=== PATIENT | male | born 1955 | race Caucasian/White ===

== ENCOUNTER 2016-12-13 18:04 | Inpatient (IN) | payer OTHER ==
[~2016-12-13] VITALS: Ht 188 cm; Wt 81.0 kg
[2016-12-13] MEDS ORDERED: SODIUM CHLORIDE 0.9% 1L BAG IV* STA (18:32)
[2016-12-13 19:00] LABS: ABNORMAL IP MESSAGE 1; BASOPHILS % 0.3 % (0.0-2.0); EOSINOPHILS % 0.3 % (0.0-7.0); HEMATOCRIT 41.6 % (42.0-52.0); HEMOGLOBIN 13.6 g/dl (14.0-18.0); LYMPHOCYTES # 0.4 10^3/ul (0.8-2.9); LYMPHOCYTES % 10.8 % (15.0-51.0); MEAN CORPUSCULAR HEMOGLOBIN 31.7 pg (29.0-33.0); MEAN CORPUSCULAR HGB CONC 32.7 g/dl (32.0-37.0); MEAN PLATELET VOLUME 12.4 fl (7.4-10.4); MONOCYTE # 0.3 10^3/ul (0.3-0.9); MONOCYTES % 10.5 % (0.0-11.0); NEUTROPHIL # 2.5 10^3/ul (1.6-7.5); NEUTROPHILS % 77.5 % (39.0-77.0); PLATELET COUNT 99 10^3/UL (140-415); POSITIVE DIFF @See below; RED BLOOD COUNT 4.29 10^6/ul (4.70-6.10); RED CELL DISTRIBUTION WIDTH 13.1 % (11.5-14.5); WHITE BLOOD COUNT 3.3 10^3/ul (4.8-10.8)
[2016-12-13 19:20] LABS: INR 1.13; PROTIME 14.5 Sec (12.2-14.2); PT RATIO 1.1
--- NOTE | 2016-12-13 19:20 | RADRPT ---
PROCEDURE: Chest x-ray CLINICAL INDICATION: Shortness of breath TECHNIQUE: Chest single view COMPARISON: None FINDINGS: Heart is normal in size. 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 No confluent pneumonia or obvious CHF is identified. Costophrenic angles sharp. Bony thorax is unremarkable. There is an old healed left clavicle fracture. IMPRESSION: 1. Increased bilateral coarse interstitial markings likely reflecting chronic change RPTAT: HH .Eulogio Jarvis MD, MD Date Time Electronically viewed and signed by .Eulogio Jarvis MD, on 12/13/2016 19:20 .W/
[2016-12-13 19:21] LABS: PARTIAL THROMBOPLASTIN TIME 26.2 Sec (25.0-35.0)
[2016-12-13] MEDS ORDERED: APIX5TAB PO (19:21)
[2016-12-13] MEDS ORDERED: TIOT18CA INHALATION (19:21)
[2016-12-13 19:22] LABS: ALBUMIN 3.5 g/dl (3.3-4.9); ALBUMIN/GLOBULIN RATIO 1.12; BILIRUBIN,INDIRECT 0.3 mg/dl (0-1.1); BILIRUBIN,TOTAL 0.3 mg/dl (0.2-1.3); CALCIUM 8.8 mg/dl (8.4-10.2); CREATININE 0.93 mg/dl (0.61-1.24); POTASSIUM 3.9 mmol/L (3.5-5.1); TOTAL PROTEIN 6.6 g/dl (6.1-8.1)
[2016-12-13] MEDS ORDERED: LEVO50TA74 PO (19:22)
[2016-12-13 19:23] VITALS: TEMP 100.3
[2016-12-13] MEDS ORDERED: QUET25TA33 PO (19:23)
[2016-12-13] MEDS ORDERED: QUET100T32 PO (19:23)
[2016-12-13] MEDS ORDERED: QUET200T27 PO (19:23)
[2016-12-13] MEDS ORDERED: ATOR10TA65 PO (19:24)
[2016-12-13] MEDS ORDERED: LORA1TAB PO (19:24)
[2016-12-13] MEDS ORDERED: FAMO40TA52 PO (19:25)
[2016-12-13] MEDS ORDERED: TRAM-40 PO (19:25)
[2016-12-13] MEDS ORDERED: UDCOL PO (19:26)
[2016-12-13] MEDS ORDERED: ALBU18HF INHALATION (19:28)
[2016-12-13 19:58] LABS: TROPONIN-I 0.19 ng/ml (0.00-0.12)
[2016-12-13] MEDS ORDERED: VLP250480 PO (20:10)
[2016-12-13] MEDS ORDERED: CEFEPIME 1GM/50 ML (PMX) 50 ML IVPB ONE (20:30)
[2016-12-13] MEDS ORDERED: VANCOMYCIN 1.5 GM in SOD CHLORIDE 0.9% 250 ML IVPB ONE (20:30)
[2016-12-13] MEDS ORDERED: FENTAnyl 50 MCG/ML VIAL IV ONE (21:30)
[2016-12-13 21:35] LABS: ADD UMIC NO; UR ASCORBIC ACID NEGATIVE (NEGATIVE); UR BILIRUBIN (Dip) NEGATIVE (NEGATIVE); UR BLOOD (Dip) NEGATIVE (NEGATIVE); UR CLARITY SLIGHTLY CLOUDY (CLEAR); UR COLOR YELLOW (YELLOW); UR GLUCOSE (Dip) NEGATIVE (NEGATIVE); UR KETONES (Dip) TRACE mg/dL (NEGATIVE); UR LEUKOCYTE ESTERASE (Dip) NEGATIVE Leu/ul (NEGATIVE); UR MUCUS FEW /HPF (NONE SEEN); UR NITRITE (Dip) NEGATIVE (NEGATIVE); UR RBC 1 /HPF (0-5); UR SPECIFIC GRAVITY (Dip) 1.015 (1.003-1.030); UR TOTAL PROTEIN (Dip) NEGATIVE (NEGATIVE); UR UROBILINOGEN (Dip) NEGATIVE (NEGATIVE)
[2016-12-13] MEDS ORDERED: HALOPERIDOL 5 MG INJ ONE (22:07)
--- NOTE | 2016-12-13 22:07 | ERA ---
ER Documentation Chief Complaint Date/Time DATE: 12/13/16 TIME: 22:07 Chief Complaint BROUGHT IN VIA EMS FROM SNF DUE TO FEVER HPI This is a 61-year-old male who is presenting with fever for 4-5 days. He lives in a nursing facility. He has a history of dementia, agitation, COPD. He is also on Eliquis, but it is unclear at this time as to why. According to his nursing facility he is not typically fully oriented. He is presently alert and oriented 2 to person and time. He is not oriented to place or situation. The patient does endorse pain all over at times, but he will answer yes and no cyst similar questioning. According to the nursing facility and paramedics, the patient was febrile above 102 Fahrenheit. He was tachycardic and transiently hypotensive as well. The patient's history is limited secondary to dementia and he is unable to provide much detail of his presentation. ROS Limited secondary to patient presentation. Medications Home Meds Reported Medications Valproic Acid* (Valproic Acid* Liq) 250 Mg/5 Ml Syrup, 25 ML PO BID, ML 12/13/16 Albuterol Sulfate* (Ventolin HFA*) 18 Gm Hfa.aer.ad, 2 PUFF INHALATION Q4H, #1 INHALER 12/13/16 Docusate Sodium* (Colace* Liq) 50 Mg/5 Ml Liquid, 25 MG PO BID, EA 12/13/16 Famotidine* (Famotidine*) 40 Mg Tablet, 40 MG PO HS, #30 TAB 12/13/16 Tramadol Hcl* (Ultram*) 50 Mg Tablet, 50 MG PO Q6H Y for PAIN, TAB 12/13/16 Atorvastatin Calcium (Atorvastatin Calcium) 10 Mg Tablet, 10 MG PO QHS, #30 TAB 12/13/16 Lorazepam* (Lorazepam*) 1 Mg Tablet, 1 MG PO BID Y for ANXIETY, #30 TAB 12/13/16 Quetiapine Fumarate* (Quetiapine Fumarate*) 200 Mg Tablet, 200 MG PO DAILY, TAB 12/13/16 Quetiapine Fumarate* (Quetiapine Fumarate*) 100 Mg Tablet, 100 MG PO HS, TAB 12/13/16 Quetiapine Fumarate* (Quetiapine Fumarate*) 25 Mg Tablet, 25 MG PO TID Y for PRN , TAB 12/13/16 Levothyroxine Sodium* (Levothyroxine Sodium*) 50 Mcg Tablet, 50 MCG PO BEFORE BREAKFAST, #30 TAB 12/13/16 Apixaban* (Eliquis*) 5 Mg Tablet, 5 MG PO BID, TAB 12/13/16 Tiotropium [place]* (Spiriva*) 18 Mcg Cap.w.dev, 1 CAP INHALATION DAILY, #30 CAP 12/13/16 Allergies Allergies: Coded Allergies: No Known Allergy (Unverified , 12/13/16) PMhx/Soc History of Surgery: Yes (both knees) Anesthesia Reaction: No Hx Neurological Disorder: No Hx Respiratory Disorders: No Hx Cardiac Disorders: No Hx Psychiatric Problems: No Hx Miscellaneous Medical Probl: No Hx Alcohol Use: No Hx Substance Use: No Hx Tobacco Use: Yes Smoking Status: Former smoker Physical Exam Vitals Vital Signs Date Time Temp Pulse Resp B/P Pulse Ox O2 Delivery O2 Flow Rate FiO2 12/13/16 21:54 117 23 99/63 99 Nasal Cannula 2.5 12/13/16 19:23 Nasal Cannula 2 12/13/16 19:23 100.3 114 39 113/74 93 Nasal Cannula 2.5 12/13/16 18:38 102.5 133 24 80/ 98 Physical Exam Const: Agitated Head: Atraumatic Eyes: Normal Conjunctiva ENT: Normal External Ears, dry mucous membranes. Neck: Full range of motion..~ No meningismus. Resp: Decreased breath sounds to the right Cardio: Tachycardia, regular rhythm, no murmurs Abd: Soft, non distended, generalized tenderness to palpation. Normal bowel sounds Skin: No petechiae or rashes Back: No midline or flank tenderness Ext: No cyanosis, or edema Neur: Awake and alert, only oriented 2 to person and year Psych: Agitated, difficult to redirect, demanding HBO, reportedly his baseline from the nursing facility Result Diagram: 12/13/16182912/13/16 183 Results 24 hrs Laboratory Tests Test 12/13/16 18:30 12/13/16 21:00 White Blood Count 3.310^3/ul Red Blood Count 4.2910^6/ul Hemoglobin 13.6g/dl Hematocrit 41.6% Mean Corpuscular Volume 97.0fl Mean Corpuscular Hemoglobin 31.7pg Mean Corpuscular Hemoglobin Concent 32.7g/dl Red Cell Distribution Width 13.1% Platelet Count 9910^3/UL Mean Platelet Volume 12.4fl Neutrophils % 77.5% Lymphocytes % 10.8% Monocytes % 10.5% Eosinophils % 0.3% Basophils % 0.3% Nucleated Red Blood Cells % 0.0/100WBC Neutrophils # 2.510^3/ul Lymphocytes # 0.410^3/ul Monocytes # 0.310^3/ul Eosinophils # 0.010^3/ul Basophils # 0.010^3/ul Nucleated Red Blood Cells # 0.010^3/ul Prothrombin Time 14.5Sec Prothrombin Time Ratio 1.1 INR International Normalized Ratio 1.13 Activated Partial Thromboplast Time 26.2Sec Sodium Level 144mmol/L Potassium Level 3.9mmol/L Chloride Level 104mmol/L Carbon Dioxide Level 23mmol/L Anion Gap 21 Blood Urea Nitrogen 24mg/dl Creatinine 0.93mg/dl Glucose Level 138mg/dl Lactic Acid Level 4.3mmol/L 3.5mmol/L Calcium Level 8.8mg/dl Total Bilirubin 0.3mg/dl Direct Bilirubin 0.00mg/dl Indirect Bilirubin 0.3mg/dl Aspartate Amino Transf (AST/SGOT) 19IU/L Alanine Aminotransferase (ALT/SGPT) 17IU/L Alkaline Phosphatase 53IU/L Troponin I 0.190ng/ml Total Protein 6.6g/dl Albumin 3.5g/dl Globulin 3.10g/dl Albumin/Globulin Ratio 1.12 Urine Color YELLOW Urine Clarity SLIGHTLY CLOUDY Urine pH 5.0 Urine Specific [place] 1.015 Urine Ketones TRACEmg/dL Urine Nitrite NEGATIVEmg/dL Urine Bilirubin NEGATIVEmg/dL Urine Urobilinogen NEGATIVEmg/dL Urine Leukocyte Esterase NEGATIVELeu/ul Urine Microscopic RBC 1/HPF Urine Microscopic WBC 1/HPF Urine Mucus FEW/HPF Urine Hemoglobin NEGATIVEmg/dL Urine Glucose NEGATIVEmg/dL Urine Total Protein NEGATIVEmg/dl Current Medications Medications (Trade) Dose Ordered Sig/Taras Route PRN Reason Start Time Stop Time Status Last Admin Dose Admin Sodium Chloride 2170 ml 2,170 ml BOLUS OVER 2 HOURS STAT IV* 12/13/16 18:32 12/13/16 18:36 DC 12/13/16 18:54 Vancomycin HCl 1.5 gm/Sodium Chloride 250 ml @ 83.333 mls/ hr ONCE ONCE IVPB 12/13/16 20:30 12/13/16 23:29 12/13/16 21:22 Cefepime HCl (Maxipime 1gm/50 ml (Pmx)) 50 ml @ 100 mls/hr ONCE ONCE IVPB 12/13/16 20:30 12/13/16 20:59 DC 12/13/16 20:56 Fentanyl (Sublimaze) 50 mcg ONCE ONCE IV 12/13/16 21:30 12/13/16 21:31 DC 12/13/16 21:31 Haloperidol (Haldol) 5 mg ONCE ONCE IV 12/13/16 22:30 12/13/16 22:31 12/13/16 22:10 Haloperidol (Haldol) 5 mg STK-MED ONCE .ROUTE 12/13/16 22:07 12/13/16 22:08 DC Procedures/MDM The patient is presenting with concerning signs of sepsis. The patient is tachypneic and tachycardic with an elevated fever. An infectious workup will be performed. The patient has a history of dementia and while he is alert, he is not completely oriented. This is reportedly his baseline. He does not have any focal deficits, and I do not suspect a neurologic pathology. The patient does not have signs of meningitis at this time. The patient denies any chest pain and trouble breathing. He also denied abdominal pain, but he was tender to palpation. The patient's blood work was obtained and reviewed. The patient's chest x-ray demonstrated increased fullness on the right side, that could be sales representative consultant of a possible pneumonia. The official radiology read did not indicate signs of an infectious process. A CT chest will be obtained to further elucidate a possible infectious etiology. The patient was significantly agitated and would not cooperate for definitive diagnostic imaging. The patient was given Haldol in the emergency department before obtaining a CT scan of the abdomen and pelvis. The patient was given 30 mL/kg of normal saline. Broad-spectrum antibiotics were initiated. The patient's CT and therefore his disposition was pending at time of signout and will be followed up by the on-call emergency physician. The patient will require admission to the hospitalist service for further evaluation. FLOR LÓPEZ MD Dec 13, 2016 22:07
[2016-12-13] MEDS ORDERED: HALOPERIDOL 5 MG INJ IV ONE (22:30)
--- NOTE | 2016-12-13 23:47 | RADRPT ---
PROCEDURE: CT CHEST ABDOMEN AND PELVIS WITHOUT CONTRAST: CLINICAL INDICATION: 61 years in of age male, sepsis. Abdominal pain. . COMPARISON: None TECHNIQUE: CT of the chest, abdomen, and pelvis was performed without IV contrast. Oral contrast was not administered prior to the examination. Dose information: Based on a 32 cm phantom, the estimated radiation dose (CTDIvol mGy) for each seri es in this exam is 19.9 . The estimated cumulative dose (DLP mGy-cm) is 1540 . FINDINGS: In the absence of intravenous contrast, the study constitutes a limited assessment of the solid orga ns and vessels. CHEST: Medical devices: None. Thyroid: Normal. Lymph nodes: Mildly enlarged lower paratracheal lymph nodes measuring up to 1.3 cm in short axis are likely reactive. Vasculature: Mild aneurysmal dilatation ascending aorta measuring 4.3 cm. Main pulmonary artery is normal caliber. Heart: Three-vessel coronary artery calcification. No pericardial effusion. Other mediastinal structures: Normal Lung parenchyma and pleura: There is patchy consolidation in the right upper lobe concerning for inf ection. Dependent consolidation in the right greater than left lower lobe may represent atelectasis or infection. Airways: There are tiny bubbles of gas overlying the right inferior trachea superior to the right ma instem bronchus that are nonspecific (3/39). Airways are widely patent. Chest wall: Normal. ABDOMEN/PELVIS: Liver: Normal. Gallbladder: Calcified cholelithiasis without evidence of acute cholecystitis. Bile ducts: No intrahepatic or extrahepatic biliary duct dilatation. Spleen: Normal. Pancreas: Normal. Adrenal glands: Normal. Kidneys and ureters: Coarse parenchymal calcification in the interpolar right kidney with mild paren chymal scarring is presumed dystrophic. Kidneys are otherwise normal. Negative for hydronephrosis. Negative for urinary calculi. Aorta and IVC: Atherosclerosis aorta. No aneurysm. Lymph nodes: Normal. Gastrointestinal tract: Rectum is distended with stool up to 8.3 cm with wall thickening. There is diverticulosis of the sigmoid and descending colon without diverticulitis. Bowel loops are decompre ssed. Small hiatus hernia. Appendix: Normal Bladder: Normal. Pelvic Organs: Normal. Peritoneal cavity: No free fluid or free intraperitoneal air. Abdominal wall: Intramuscular lipoma left buttock. BONES: Musculoskeletal: Degenerative changes in the spine. Old fracture deformity right obturator ring. N o suspicious bone lesions. IMPRESSION: 1. Patchy consolidation right upper lobe of the lung is concerning for pneumonia. Right greater rajeev n left dependent lung consolidation may be due to infection or atelectasis. 2. Stool ball in the rectum with rectal wall thickening is concerning for stercoral proctitis. Gerald mmended disimpaction. 3. Colonic diverticulosis without diverticulitis. 4. Cholelithiasis without evidence of acute cholecystitis. 5. Mild ascending aortic aneurysm measuring 4.3 cm. 6. Nonspecific bubbles of gas lateral to the trachea and superior to right mainstem bronchus are non specific. Recommend correlation with history of prior intervention. Recommend attention on follow- up imaging. RPTAT: HCTS Physician Anmol Date Time Electronically viewed and signed by Connie Guzman Physician on 12/13/2016 23:46 CS/
--- NOTE | 2016-12-13 23:54 | RADRPT ---
PROCEDURE: CT CHEST WITHOUT CONTRAST: CLINICAL INDICATION: 61-year of age, male . Sepsis. Abdominal pain.. COMPARISON: CT abdomen pelvis from the same day TECHNIQUE: CT of the chest was performed without IV contrast. Dose information: The estimated radiation dose (CTDIvol mGy) for each series in this exam is 19.9 . The estimated cumulative dose (DLP mGy-cm)is 1540 . FINDINGS: In the absence of intravenous contrast, the study constitutes a limited assessment of the solid orga ns and vessels. CHEST: Medical devices: None. Thyroid: Normal. Lymph nodes: Mildly enlarged paratracheal lymph nodes measuring up to 1.3 cm in short axis are likel y reactive. Vasculature: Mild aneurysmal dilatation of the ascending aorta measuring 4.3 cm. Pulmonary artery i s normal caliber. Heart: Three-vessel coronary calcification. No pericardial effusion. Other mediastinal structures: Normal. Lung parenchyma and pleura: Patchy consolidation right upper lobe is concerning for infection . Righ t greater than left dependent lung consolidation may represent atelectasis or infection. Airways: Nonspecific bubbles of gas alongside the right lower trachea superior to right mainstem bro nchus. Airways are patent. Chest wall: Normal. Upper abdomen: Please see CT abdomen pelvis reported separately. Musculoskeletal: Degenerative changes of the spine. No suspicious bone lesions. IMPRESSION: 1. Patchy right upper lobe lung consolidation is concerning for infection. Right greater than left dependent lung consolidation may represent atelectasis or infection. 2. Nonspecific bubbles of gas alongside the right lower trachea superior to right mainstem bronchus. Recommend correlation with history of intervention and attention on follow-up imaging. 3. Mild ascending aortic aneurysm measuring 4.3 cm. RPTAT: HCTS Physician Anmol Date Time Electronically viewed and signed by Physician Anmol on 12/13/2016 23:53 CS/
[2016-12-14] VITALS (12 sets, daily range): BP systolic 92–113; BP diastolic 53–59; PULSE 79–98; RESP 18–19; Ht 188 cm; Wt 81.0 kg
[2016-12-14] MEDS ORDERED: HALOPERIDOL 5 MG INJ IM ONE (00:50)
[2016-12-14] MEDS ORDERED: NACL 0.9% 3 ML SYG IV SCH (02:30)
[2016-12-14] MEDS ORDERED: ACETAMINOPHEN 650 MG SUPP PR PRN (02:30)
[2016-12-14] MEDS ORDERED: ONDANSETRON 4 MG INJ IV PRN (02:30)
--- NOTE | 2016-12-14 02:36 | HP ---
Date/Time of Note Date/Time of Note DATE: 12/14/16 TIME: 02:33 Assessment/Plan VTE Prophylaxis VTE Prophylaxis Intervention: other Lines/Catheters Urinary Cath still in place: No Assessment/Plan Chief Complaint/Hosp Course This is a 61-year-old male being admitted to the telemetry floor for: #1 sepsis: Lactic acid of 3.6, consolidation seen on chest x-ray. Will treat for healthcare associated pneumonia as patient has been at a nursing facility. Will put him on broad-spectrum antibiotics vancomycin, cefepime and aztreonam. Continue IV fluid hydration. Trend lactate levels. #2 healthcare associated pneumonia: At the current time we will treat with broad -spectrum antibiotics as per #1. #3 abnormal CAT scan of the chest: Along with possible signs of pneumonia there also were abnormal bubbles of gas seen in the lungs. Follow-up imaging was recommended. Will consult pulmonology for further evaluation. #4 Elevated troponin: Patient denied any chest pain. EKG did show T-wave inversions in V4 through V6. Initial troponin was 0.190 will continue to trend troponins. This likely could be secondary to demand ischemia. However we will monitor this closely and observe for any chest pain in which case patient likely will be diagnosed with a NSTEMI and needed to be started on a heparin drip. Will consult cardiology. #5 proctitis: CAT scan also showed signs of rectal wall thickening and rectal stool with evidence of possible proctitis. Patient currently is on antibiotics. Will consult GI for disimpaction. #6 COPD: Continue home inhalers #7 hypothyroidism: Continue levothyroxine #8 dementia/behavioral disorder: Continue psychiatric medication #9 DVT and GI prophylaxis: Xarelto, Protonix. Patient is unsure with why he is on Xarelto and I am not able to obtain from his history, he is on Xarelto. We will need to obtain further records from the nursing facility to establish the reason for why he is taking Xarelto. Further treatment strategy will be implemented as per the clinical course Problems: HPI/ROS Admit Date/Time Admit Date/Time Dec 13, 2016 at 23:22 Hx of Present Illness Chief complaint: Fever 45 days This is a 61-year-old male who is presenting with fever for 4-5 days. History was gathered from the ED physician documentation as well as the patient, however the patient is a poor historian. he lives in a nursing facility. He has a history of dementia, agitation, COPD. He is also on Eliquis, but it is unclear at this time as to why. According to his nursing facility he is not typically fully oriented. He is presently alert and oriented 2 to person and time. He is not oriented to place or situation. He does state that he has some pain and points to his lower abdomen. According to the nursing facility and paramedics, the patient was febrile above 102 Fahrenheit. He was tachycardic and transiently hypotensive as well. The patient's history is limited secondary to dementia and he is unable to provide much detail of his presentation Allergies: NKDA Medications: See MAR ROS Subjective hx not possible: other (Unable to get a proper review of systems secondary to patient's mental status/dementia) PMH/Family/Social Past Medical History dementia, agitation, COPD, further history unknown secondary to patient's clinical condition/dementia Past Surgical History Bilateral knee surgery, further history unknown secondary to patient's clinical condition/dementia Family History Significant Family History: other (Unknown secondary to patient's clinical condition/dementia) Social History Smoking Status: Former smoker (5 cigarettes a day 5 years) Exam/Review of Systems Vital Signs Vitals Vital Signs Date Time Temp Pulse Resp B/P Pulse Ox O2 Delivery O2 Flow Rate FiO2 12/14/16 01:45 99.1 96 18 113/59 98 Nasal Cannula 2.0 Exam Exam General: Patient is lying in bed in no acute distress HEENT: Atraumatic, normocephalic. The pupils are equal, round and reactive. Extraocular motor are intact Neck: Supple with full range of motion. No rigidity or meningismus Chest: Nontender Lungs: Coarse breath sounds of bilateral lung field Heart: Sinus tachycardia Abdomen: Soft, nondistended, mild tenderness to palpation over the lower abdominal quadrants Extremities: Normal to inspection, no edema no cyanosis Neurologic: Awake and alert, oriented to place but not to time. Additional Comments EKG read by me: Rate/Rhythm: Regular rhythm, sinus tachycardia at a rate of 114 Intervals: Normal [place]: Normal Impression: No evidence of ischemia or arrhythmia as per ED physician documentation PROCEDURE: CT CHEST WITHOUT CONTRAST: CLINICAL INDICATION: 61-year of age, male . Sepsis. Abdominal pain.. COMPARISON: CT abdomen pelvis from the same day TECHNIQUE: CT of the chest was performed without IV contrast. Dose information: The estimated radiation dose (CTDIvol mGy) for each series in this exam is 19.9 . The estimated cumulative dose (DLP mGy-cm)is 1540 . FINDINGS: In the absence of intravenous contrast, the study constitutes a limited assessment of the solid organs and vessels. CHEST: Medical devices: None. Thyroid: Normal. Lymph nodes: Mildly enlarged paratracheal lymph nodes measuring up to 1.3 cm in short axis are likely reactive. Vasculature: Mild aneurysmal dilatation of the ascending aorta measuring 4.3 cm. Pulmonary artery is normal caliber. Heart: Three-vessel coronary calcification. No pericardial effusion. Other mediastinal structures: Normal. Lung parenchyma and pleura: Patchy consolidation right upper lobe is concerning for infection . Right greater than left dependent lung consolidation may represent atelectasis or infection. Airways: Nonspecific bubbles of gas alongside the right lower trachea superior to right mainstem bronchus. Airways are patent. Chest wall: Normal. Upper abdomen: Please see CT abdomen pelvis reported separately. Musculoskeletal: Degenerative changes of the spine. No suspicious bone lesions. IMPRESSION: 1. Patchy right upper lobe lung consolidation is concerning for infection. Right greater than left dependent lung consolidation may represent atelectasis or infection. 2. Nonspecific bubbles of gas alongside the right lower trachea superior to right mainstem bronchus. Recommend correlation with history of intervention and attention on follow-up imaging. 3. Mild ascending aortic aneurysm measuring 4.3 cm. RPTAT: HCTS Physician Anmol Date Time Electronically viewed and signed by Physician Anmol on 12/13/2016 23: 53 PROCEDURE: CT CHEST ABDOMEN AND PELVIS WITHOUT CONTRAST: CLINICAL INDICATION: 61 years in of age male, sepsis. Abdominal pain. . COMPARISON: None TECHNIQUE: CT of the chest, abdomen, and pelvis was performed without IV contrast. Oral contrast was not administered prior to the examination. Dose information: Based on a 32 cm phantom, the estimated radiation dose ( CTDIvol mGy) for each series in this exam is 19.9 . The estimated cumulative dose (DLP mGy-cm) is 1540 . FINDINGS: In the absence of intravenous contrast, the study constitutes a limited assessment of the solid organs and vessels. CHEST: Medical devices: None. Thyroid: Normal. Lymph nodes: Mildly enlarged lower paratracheal lymph nodes measuring up to 1.3 cm in short axis are likely reactive. Vasculature: Mild aneurysmal dilatation ascending aorta measuring 4.3 cm. Main pulmonary artery is normal caliber. Heart: Three-vessel coronary artery calcification. No pericardial effusion. Other mediastinal structures: Normal Lung parenchyma and pleura: There is patchy consolidation in the right upper lobe concerning for infection. Dependent consolidation in the right greater than left lower lobe may represent atelectasis or infection. Airways: There are tiny bubbles of gas overlying the right inferior trachea superior to the right mainstem bronchus that are nonspecific (3/39). Airways are widely patent. Chest wall: Normal. ABDOMEN/PELVIS: Liver: Normal. Gallbladder: Calcified cholelithiasis without evidence of acute cholecystitis. Bile ducts: No intrahepatic or extrahepatic biliary duct dilatation. Spleen: Normal. Pancreas: Normal. Adrenal glands: Normal. Kidneys and ureters: Coarse parenchymal calcification in the interpolar right kidney with mild parenchymal scarring is presumed dystrophic. Kidneys are otherwise normal. Negative for hydronephrosis. Negative for urinary calculi. Aorta and IVC: Atherosclerosis aorta. No aneurysm. Lymph nodes: Normal. Gastrointestinal tract: Rectum is distended with stool up to 8.3 cm with wall thickening. There is diverticulosis of the sigmoid and descending colon without diverticulitis. Bowel loops are decompressed. Small hiatus hernia. Appendix: Normal Bladder: Normal. Pelvic Organs: Normal. Peritoneal cavity: No free fluid or free intraperitoneal air. Abdominal wall: Intramuscular lipoma left buttock. BONES: Musculoskeletal: Degenerative changes in the spine. Old fracture deformity right obturator ring. No suspicious bone lesions. IMPRESSION: 1. Patchy consolidation right upper lobe of the lung is concerning for pneumonia. Right greater than left dependent lung consolidation may be due to infection or atelectasis. 2. Stool ball in the rectum with rectal wall thickening is concerning for stercoral proctitis. Recommended disimpaction. 3. Colonic diverticulosis without diverticulitis. 4. Cholelithiasis without evidence of acute cholecystitis. 5. Mild ascending aortic aneurysm measuring 4.3 cm. 6. Nonspecific bubbles of gas lateral to the trachea and superior to right mainstem bronchus are nonspecific. Recommend correlation with history of prior intervention. Recommend attention on follow-up imaging. RPTAT: HCTS Connie Guzman Physician Date Time Electronically viewed and signed by Connie Guzman Physician on 12/13/2016 23: 46 CS/ CC: FLOR LÓPEZ MD Labs Result Diagram: 12/13/16182912/13/16 183 Medications Medications Current Medications Sodium Chloride (NS) 1,000 ml @ 75 mls/hr [id number] IV ; Start 12/14/16 at 02:27; Status ANNEL UGARTE Dec 14, 2016 02:35
[2016-12-14] MEDS ORDERED: VANCOMYCIN IV PER PHARMACY XX SCH (03:00)
[2016-12-14] MEDS: ALBUTEROL 18 GM INHALER INH SCH ×6 (03:00→23:02)
[2016-12-14] MEDS ORDERED: AZTREONAM 2 GM in SOD CHLORIDE 0.9% 100 ML IVPB SCH (03:30)
[2016-12-14] MEDS: SOD CHLORIDE 0.9% 1,000 ML IV SCH ×2 (04:23→18:32)
[2016-12-14 04:29] LABS: ABNORMAL IP MESSAGE 1; BASOPHILS % 0.1 % (0.0-2.0); HEMATOCRIT 37.8 % (42.0-52.0); LYMPHOCYTES # 0.7 10^3/ul (0.8-2.9); LYMPHOCYTES % 6.6 % (15.0-51.0); MEAN CORPUSCULAR HEMOGLOBIN 31.3 pg (29.0-33.0); MEAN CORPUSCULAR HGB CONC 31.7 g/dl (32.0-37.0); MEAN CORPUSCULAR VOLUME 98.4 fl (82.0-101.0); MEAN PLATELET VOLUME 12.3 fl (7.4-10.4); MONOCYTE # 1.3 10^3/ul (0.3-0.9); NEUTROPHIL # 8.1 10^3/ul (1.6-7.5); NEUTROPHILS % 79.2 % (39.0-77.0); PLATELET COUNT 97 10^3/UL (140-415); POSITIVE DIFF @See below; RED BLOOD COUNT 3.84 10^6/ul (4.70-6.10); RED CELL DISTRIBUTION WIDTH 13.3 % (11.5-14.5); WHITE BLOOD COUNT 10.3 10^3/ul (4.8-10.8)
[2016-12-14 04:51] LABS: CHOL/HDL RATIO 1.6 RATIO
[2016-12-14 04:56] LABS: ALBUMIN 3.3 g/dl (3.3-4.9); ALBUMIN/GLOBULIN RATIO 1.17; BILIRUBIN,INDIRECT 0.3 mg/dl (0-1.1); BILIRUBIN,TOTAL 0.3 mg/dl (0.2-1.3); CALCIUM 8.4 mg/dl (8.4-10.2); CREATININE 0.86 mg/dl (0.61-1.24); POTASSIUM 3.7 mmol/L (3.5-5.1); TOTAL PROTEIN 6.1 g/dl (6.1-8.1)
[2016-12-14 05:01] LABS: TROPONIN-I 0.094 ng/ml (0.00-0.12)
[2016-12-14 05:06] LABS: CK-MB 4.08 ng/ml (0.0-2.4)
[2016-12-14] MEDS ORDERED: HEPARIN 5,000 UNIT/0.5 ML VIAL SC SCH (06:00)
[2016-12-14] MEDS ORDERED: PANTOPRAZOLE 40 MG INJ IV SCH (06:00)
[2016-12-14] MEDS: LEVOTHYROXINE 50 MCG TAB PO SCH (06:10)
[2016-12-14] MEDS ORDERED: SOD CHLORIDE 0.9% 1,000 ML IV ONE (06:30)
[2016-12-14] MEDS ORDERED: MAGNESIUM SULFATE 1 GM/D5W 100 ML IVPB ONE (06:30)
[2016-12-14] MEDS: TIOTROPIUM 18 MCG CAPSULE INHA DEV INH SCH (09:00)
[2016-12-14] MEDS: QUETIAPINE 100 MG TAB PO SCH ×3 (09:00→21:19)
[2016-12-14] MEDS ORDERED: VANCOMYCIN 1.25 GM in SOD CHLORIDE 0.9% 250 ML IVPB SCH (10:00)
[2016-12-14] MEDS: CEFEPIME 2GM/50 ML (PMX) 50 ML IVPB SCH ×2 (10:02→21:16)
--- NOTE | 2016-12-14 10:28 | RADRPT ---
Echocardiogram Report Patient Name: FLOR JACOBS Gender: Male Date: 1955 Study Date: 14-Dec-2016 Neuropsychology Director: Jesus Valencia [facility] Location: [id number] Ref. Physician: ANNEL GARRETT Quality: Technically Difficult Study Procedures: Transthoracic echocardiogram with complete 2D, M-Mode, and doppler examination. Indications: Elevated troponin. 2D/M Mode Doppler Measurement Value Normal Ranges Measurement Value Normal Ranges LVIDd 2D 4.2 3.5 - 5.6 cm AV Peak Jimmy 1.1 m/sec LVIDs 2D 2.3 2.1 - 4.1 cm AV Peak PG 5.0 mmHg FS 2D 44.8 % LVOT Peak Jimmy 0.9 m/sec LVPWd 2D 1.0 0.6 - 1.1 cm LVOT Peak PG 3.0 mmHg IVSd 2D 1.0 0.6 - 1.1 cm MV E Peak Jimmy 0.5 m/sec IVS/LVPW 2D 1.0 MV A Peak Jimmy 0.6 m/sec AoR Diam 2D 3.8 2.0 - 3.7 cm MV E/A 0.8 LA/Ao 2D 1 0 - 1 MV Decel Time 169 msec EDV 2D 75.2 cm3 MV E/A 0.8 ESV 2D 12.6 cm3 LA Dimen 2D 3.4 2.3 - 4.0 cm Findings Left Ventricle: Normal left ventricular systolic function. Normal left ventricular cavity size. Normal left ventricular wall thickness. Ejection fraction is visually estimated at 65 %. Tissue Doppler/Mitral Doppler indices are consistent with impaired relaxation (Stage I diastolic dysfunction). Right Ventricle: Normal right ventricular size. Normal right ventricular systolic function. Left Atrium: The left atrium is normal in size. Right Atrium: The right atrium is normal in size. Mitral Valve: Normal appearance and function of the mitral valve with trace physiologic regurgitation. Aortic Valve: Aortic valve not well visualized. Tricuspid Valve: Normal appearance of the tricuspid valve. Unable to obtain RVSP due to minimal presence of tricuspid regurgitation. Pulmonic Valve: Pulmonic valve not well visualized. Pericardium: Normal pericardium with no significant pericardial effusion. Aorta: Normal aortic root. IVC: Normal size and normal respiratory collapse consistent with normal right atrial pressure. Conclusions 1.Normal left ventricular systolic function. Normal left ventricular cavity size. Normal left ventricular wall thickness. Ejection fraction is visually estimated at 65 %. Tissue Doppler/Mitral Doppler indices are consistent with impaired relaxation (Stage I diastolic dysfunction). 2.Normal appearance and function of the mitral valve with trace physiologic regurgitation. 3.Aortic valve not well visualized. 4.Normal appearance of the tricuspid valve. Unable to obtain RVSP due to minimal presence of tricuspid regurgitation. 5.SUBOPTIMAL STUDY. Electronically Signed By: Neil Nichols 14-Dec-2016 10:27:47 -0700 Patient Name: FLOR JACOBS Study Date: 14-Dec-2016 [id number]
[2016-12-14 11:45] LABS: TROPONIN-I 0.079 ng/ml (0.00-0.12)
[2016-12-14 11:49] LABS: CK-MB 4.1 ng/ml (0.0-2.4)
[2016-12-14] MEDS: APIXABAN 5 MG TABLET PO SCH ×2 (13:13→21:19)
[2016-12-14] MEDS: VALPROIC ACID LIQUID CUP 250 MG/5 ML CUP PO SCH ×2 (13:13→21:22)
[2016-12-14] MEDS: LORAZEPAM 1 MG TAB PO PRN (17:09)
[2016-12-14] MEDS: traMADol 50 MG TAB PO PRN (17:09)
--- NOTE | 2016-12-14 17:47 | PN ---
Date/Time of Note Date/Time of Note DATE: 12/14/16 TIME: 17:47 Assessment/Plan VTE Prophylaxis VTE Prophylaxis Intervention: SCD's Lines/Catheters IV Catheter Type (from Nrsg): Peripheral IV Urinary Cath still in place: No Assessment/Plan Assessment/Plan 61 yo M with ?dementia who lives at a SNF admitted for fever and tachycardia. Lung imaging with infiltrates. Pt with sepsis from pneumonia, pathogen not yet defined #PNA: given pt lives at SNF, reasonable to continue broad coverage for time being, consider narrowing in 24-48 hours check sputum culture blood cultures in process strep urine Ag #weak cough: ST eval cont home meds including eliquis abd psych meds Subjective 24 Hr Interval Summary Free Text/Dictation pt states he's lived at a prison for the past few mos. Does not know why he lives there Exam/Review of Systems Vital Signs Vitals Vital Signs Date Time Temp Pulse Resp B/P Pulse Ox O2 Delivery O2 Flow Rate FiO2 12/14/16 16:36 95 4.0 12/14/16 16:20 85 12/14/16 16:08 98.5 19 99/55 12/14/16 01:45 Nasal Cannula Intake and Output 12/13/16 12/13/16 12/14/16 15:00 23:00 07:00 Output Total 400 ml Balance -400 ml Exam laying in bed, weak cough no mrg lungs clear abd soft no rashes pulm imaging reviewed Results Result Diagram: 12/14/16 0334 12/14/16 0334 Results 24 hrs Laboratory Tests Test 12/13/16 18:30 12/13/16 21:00 12/13/16 22:45 12/14/16 03:34 White Blood Count 3.3 L 10.3 # Red Blood Count 4.29 L 3.84 L Hemoglobin 13.6 L 12.0 L Hematocrit 41.6 L 37.8 L Mean Corpuscular Volume 97.0 98.4 Mean Corpuscular Hemoglobin 31.7 31.3 Mean Corpuscular Hemoglobin Concent 32.7 31.7 L Red Cell Distribution Width 13.1 13.3 Platelet Count 99 L 97 L Mean Platelet Volume 12.4 H 12.3 H Neutrophils % 77.5 H 79.2 H Lymphocytes % 10.8 L 6.6 L Monocytes % 10.5 13.0 H Eosinophils % 0.3 0.0 Basophils % 0.3 0.1 Nucleated Red Blood Cells % 0.0 0.0 Neutrophils # 2.5 8.1 H Lymphocytes # 0.4 L 0.7 L Monocytes # 0.3 1.3 H Eosinophils # 0.0 0.0 Basophils # 0.0 0.0 Nucleated Red Blood Cells # 0.0 0.0 Prothrombin Time 14.5 H Prothrombin Time Ratio 1.1 INR International Normalized Ratio 1.13 Activated Partial Thromboplast Time 26.2 Sodium Level 144 147 H Potassium Level 3.9 3.7 Chloride Level 104 106 Carbon Dioxide Level 23 26 Anion Gap 21 H 19 H Blood Urea Nitrogen 24 H 22 H Creatinine 0.93 0.86 Glucose Level 138 83 # Lactic Acid Level 4.3 *H 3.5 *H 3.6 *H Calcium Level 8.8 8.4 Total Bilirubin 0.3 0.3 Direct Bilirubin 0.00 0.00 Indirect Bilirubin 0.3 0.3 Aspartate Amino Transf (AST/SGOT) 19 34 # Alanine Aminotransferase (ALT/SGPT) 17 23 Alkaline Phosphatase 53 42 Troponin I 0.190 *H 0.094 Total Protein 6.6 6.1 Albumin 3.5 3.3 Globulin 3.10 2.80 Albumin/Globulin Ratio 1.12 1.17 Urine Color YELLOW Urine Clarity SLIGHTLY CLOUDY A Urine pH 5.0 Urine Specific [place] 1.015 Urine Ketones TRACE A Urine Nitrite NEGATIVE Urine Bilirubin NEGATIVE Urine Urobilinogen NEGATIVE Urine Leukocyte Esterase NEGATIVE Urine Microscopic RBC 1 Urine Microscopic WBC 1 Urine Mucus FEW A Urine Hemoglobin NEGATIVE Urine Glucose NEGATIVE Urine Total Protein NEGATIVE Hemoglobin A1c 5.0 Magnesium Level 1.6 L Creatine Kinase 468 H Creatine Kinase Index 0.9 Creatinine Kinase MB (Mass) 4.08 H Triglycerides Level 57 Cholesterol Level 86 L LDL Cholesterol, Calculated 22 HDL Cholesterol 53 Cholesterol/HDL Ratio 1.6 Thyroid Stimulating Hormone (TSH) 1.120 Valproic Acid (Depakene) Level 45 L Test 12/14/16 10:31 Lactic Acid Level 1.9 Creatine Kinase 489 H Creatine Kinase Index 0.8 Creatinine Kinase MB (Mass) 4.10 H Troponin I 0.079 Medications Medications Current Medications Sodium Chloride (NS) 1,000 ml @ 75 mls/hr [id number] IV Last administered on t 04:23; Admin Dose 75 MLS/HR; Start 12/14/16 at 02:27 Ondansetron HCl (Zofran Inj) 4 mg Q6H PRN IV NAUSEA AND/OR VOMITING; Start 12/14 at 02:30 Acetaminophen (Tylenol Supp) 650 mg Q6H PRN [place] PAIN LEVEL 1-3 OR FEVER; Start 12/14/16 at 02:30 Heparin Sodium (Porcine) 5000 unit 5,000 unit Q8 SC Last administered on 06:01; Admin Dose 5,000 UNIT; Start 12/14/16 at 06:00; Status Future Hold Cefepime HCl (Maxipime 2gm/50 ml (Pmx)) 50 ml @ 100 mls/hr Q12 IVPB Last administered on 12/14/16 10:02; Admin Dose 100 MLS/HR; Start 12/14/16 at 09:00 Albuterol (Ventolin Hfa) 2 puff Q4H INH Last administered on 12/14/16 06:10; Admin Dose 2 PUFF; Start 12/14/16 at 03:00 Atorvastatin Calcium (Lipitor) 10 mg QHS PO ; Start 12/14/16 at 21:00 Lorazepam (Ativan) 1 mg BID PRN PO ANXIETY Last administered on 12/14/16 17:09 ; Admin Dose 1 MG; Start 12/14/16 at 03:00 Quetiapine Fumarate (Seroquel) 100 mg HS PO ; Start 12/14/16 at 21:00 Quetiapine Fumarate (Seroquel) 200 mg DAILY PO Last administered on 12/14/16 17 :08; Admin Dose 200 MG; Start 12/14/16 at 09:00 Tiotropium [place] (Spiriva) 18 inh DAILY INH ; Start 12/14/16 at 09:00 Tramadol HCl (Ultram) 50 mg Q6H PRN PO PAIN Last administered on 12/14/16 17:09 ; Admin Dose 50 MG; Start 12/14/16 at 03:00 Valproate Sodium (Depakene Liquid Cup) 1,250 mg BID PO Last administered on 12/14 13:13; Admin Dose 1,250 MG; Start 12/14/16 at 09:00 Apixaban 5 mg 5 mg BID PO Last administered on 12/14/16 13:13; Admin Dose 5 MG ; Start 12/14/16 at 09:00 Vancomycin HCl/ Sodium Chloride (Vancocin/NS) 250 ml @ 83.333 mls/ hr Q12H IVPB ; Start 12/15/16 at 01:00 Miscellaneous Information (*Rx Drug Level Order Reminder*) 1 ONCE ONCE XX ; Start 12/15/16 at 12:00; Stop 12/15/16 at 12:01 ANIKA BROWNLEE MD Dec 14, 2016 17:47
[2016-12-14] MEDS: ATORVASTATIN 10 MG TAB PO SCH (21:19)
[2016-12-15] VITALS (11 sets, daily range): BP systolic 103–141; BP diastolic 52–72; PULSE 72–81; RESP 19–20
[2016-12-15] MEDS: LORAZEPAM 1 MG TAB PO PRN (00:09)
[2016-12-15] MEDS: traMADol 50 MG TAB PO PRN (00:09)
[2016-12-15] MEDS: VANCOMYCIN 1.25 GM in SOD CHLORIDE 0.9% 250 ML IVPB SCH ×2 (01:20→13:33)
[2016-12-15] MEDS: ALBUTEROL 18 GM INHALER INH SCH ×4 (03:08→15:00)
[2016-12-15] MEDS: SOD CHLORIDE 0.9% 1,000 ML IV SCH (05:07)
[2016-12-15] MEDS: LEVOTHYROXINE 50 MCG TAB PO SCH (07:00)
[2016-12-15] MEDS: QUETIAPINE 100 MG TAB PO SCH (09:00)
[2016-12-15] MEDS: VALPROIC ACID LIQUID CUP 250 MG/5 ML CUP PO SCH (09:00)
[2016-12-15] MEDS: APIXABAN 5 MG TABLET PO SCH (09:00)
[2016-12-15] MEDS: TIOTROPIUM 18 MCG CAPSULE INHA DEV INH SCH (09:00)
[2016-12-15] MEDS: CEFEPIME 2GM/50 ML (PMX) 50 ML IVPB SCH ×2 (09:35→21:00)
[2016-12-15] MEDS ORDERED: LIDOCAINE 1% (MPF) 5 ML VIAL SC ONE (16:00)
--- NOTE | 2016-12-15 17:34 | PN ---
Date/Time of Note Date/Time of Note DATE: 12/15/16 TIME: 17:32 Assessment/Plan VTE Prophylaxis VTE Prophylaxis Intervention: SCD's Lines/Catheters IV Catheter Type (from Nrsg): Peripheral IV Urinary Cath still in place: No Assessment/Plan Assessment/Plan 61 yo M with ?dementia who lives at a SNF admitted for fever and tachycardia. Lung imaging with infiltrates. Pt with sepsis from pneumonia, pathogen not yet defined #PNA: given pt lives at SNF, reasonable to continue broad coverage for time being, consider narrowing in 24 hours check sputum culture blood cultures in process strep urine Ag #weak cough: ST eval with dysphagia, NPO for now pending MBBS cont home meds including eliquis and psych meds Subjective 24 Hr Interval Summary Free Text/Dictation tachycardia and hypotension resolved. no complaints Exam/Review of Systems Vital Signs Vitals Vital Signs Date Time Temp Pulse Resp B/P Pulse Ox O2 Delivery O2 Flow Rate FiO2 12/15/16 16:30 73 12/15/16 15:32 98.4 20 141/71 99 12/15/16 11:22 5.0 12/14/16 01:45 Nasal Cannula Intake and Output 12/14/16 12/14/16 12/15/16 15:00 23:00 07:00 Intake Total 50 ml 1300 ml 1150 ml Output Total 1400 ml Balance 50 ml 1300 ml -250 ml Exam nad, laying in bed coarse breath sounds no mrg abd soft no rashes Results Result Diagram: 12/14/16 0334 12/14/16 0334 Results 24 hrs Laboratory Tests Test 12/15/16 12:17 Vancomycin Level Trough 10.0 Medications Medications Current Medications Ondansetron HCl (Zofran Inj) 4 mg Q6H PRN IV NAUSEA AND/OR VOMITING; Start 12/14 at 02:30 Acetaminophen (Tylenol Supp) 650 mg Q6H PRN [place] PAIN LEVEL 1-3 OR FEVER; Start 12/14/16 at 02:30 Heparin Sodium (Porcine) 5000 unit 5,000 unit Q8 SC Last administered on 06:01; Admin Dose 5,000 UNIT; Start 12/14/16 at 06:00; Status Future Hold Cefepime HCl (Maxipime 2gm/50 ml (Pmx)) 50 ml @ 100 mls/hr Q12 IVPB Last administered on 12/15/16 09:35; Admin Dose 100 MLS/HR; Start 12/14/16 at 09:00 Albuterol (Ventolin Hfa) 2 puff Q4H INH Last administered on 12/15/16 03:08; Admin Dose 2 PUFF; Start 12/14/16 at 03:00 Atorvastatin Calcium (Lipitor) 10 mg QHS PO Last administered on 12/14/16 21:19 ; Admin Dose 10 MG; Start 12/14/16 at 21:00 Lorazepam (Ativan) 1 mg BID PRN PO ANXIETY Last administered on 12/15/16 00:09 ; Admin Dose 1 MG; Start 12/14/16 at 03:00 Quetiapine Fumarate (Seroquel) 100 mg HS PO Last administered on 12/14/16 21:19 ; Admin Dose 100 MG; Start 12/14/16 at 21:00 Quetiapine Fumarate (Seroquel) 200 mg DAILY PO Last administered on 12/14/16 17 :08; Admin Dose 200 MG; Start 12/14/16 at 09:00 Tiotropium [place] (Spiriva) 18 inh DAILY INH ; Start 12/14/16 at 09:00 Tramadol HCl (Ultram) 50 mg Q6H PRN PO PAIN Last administered on 12/15/16 00:09 ; Admin Dose 50 MG; Start 12/14/16 at 03:00 Valproate Sodium (Depakene Liquid Cup) 1,250 mg BID PO Last administered on 12/14 21:22; Admin Dose 1,250 MG; Start 12/14/16 at 09:00 Apixaban 5 mg 5 mg BID PO Last administered on 12/14/16 21:19; Admin Dose 5 MG ; Start 12/14/16 at 09:00 Vancomycin HCl/ Sodium Chloride (Vancocin/NS) 250 ml @ 83.333 mls/ hr Q12H IVPB ; Start 12/16/16 at 01:00 ANIKA BROWNLEE MD Dec 15, 2016 17:34
[2016-12-16] MEDS: ATORVASTATIN 10 MG TAB PO SCH ×2 (00:47→22:42)
[2016-12-16] MEDS: APIXABAN 5 MG TABLET PO SCH ×3 (00:47→22:42)
[2016-12-16] MEDS: QUETIAPINE 100 MG TAB PO SCH ×3 (00:47→22:42)
[2016-12-16] MEDS: ALBUTEROL 18 GM INHALER INH SCH ×7 (00:48→23:00)
[2016-12-16] MEDS ORDERED: VANCOMYCIN 1.5 GM in SOD CHLORIDE 0.9% 250 ML IVPB SCH (01:00)
[2016-12-16 02:00] VITALS: BP 120/60; RESP 19
[2016-12-16] MEDS: VALPROIC ACID LIQUID CUP 250 MG/5 ML CUP PO SCH (02:50)
[2016-12-16 05:57] LABS: CREATININE 0.57 mg/dl (0.61-1.24)
[2016-12-16] MEDS: LEVOTHYROXINE 50 MCG TAB PO SCH (06:27)
[2016-12-16 07:31] VITALS: BP 116/67; RESP 18
--- NOTE | 2016-12-16 08:57 | PN ---
Date/Time of Note Date/Time of Note DATE: 12/16/16 TIME: 08:53 Assessment/Plan VTE Prophylaxis VTE Prophylaxis Intervention: SCD's Lines/Catheters IV Catheter Type (from Nrsg): Peripheral IV Urinary Cath still in place: No Assessment/Plan Assessment/Plan 61 yo M with ?dementia who lives at a SNF admitted for fever and tachycardia. Lung imaging with infiltrates. Pt with sepsis from pneumonia, pathogen not yet defined #PNA: given resolution of abnormal temperature and HR, convert from broad spectrum abx to CAP coverage with levoflox check sputum culture blood cultures in process strep urine Ag #weak cough: ST eval with dysphagia, NPO for now pending MBBS cont home meds including eliquis and psych meds Subjective 24 Hr Interval Summary Free Text/Dictation Pt transferred from tele to med surg. Trying to get out of bed a little overnight. Lost IV access Exam/Review of Systems Vital Signs Vitals Vital Signs Date Time Temp Pulse Resp B/P Pulse Ox O2 Delivery O2 Flow Rate FiO2 12/16/16 07:31 97.9 89 18 116/67 98 12/16/16 01:40 2.0 12/14/16 01:45 Nasal Cannula Intake and Output 12/15/16 12/15/16 12/16/16 15:00 23:00 07:00 Intake Total 70 ml Balance 70 ml Exam nad, sitting up in bed, a little agitated no mrg lungs clear in superior warren abd soft no rashes blood cultures from admission 05/10 CONS-->likely contaminant Results Result Diagram: 12/14/16 0334 12/16/16 0510 Results 24 hrs Laboratory Tests Test 12/15/16 12:17 12/16/16 05:10 Vancomycin Level Trough 10.0 Blood Urea Nitrogen 11 Creatinine 0.57 L Medications Medications Current Medications Ondansetron HCl (Zofran Inj) 4 mg Q6H PRN IV NAUSEA AND/OR VOMITING; Start 12/14 at 02:30 Acetaminophen (Tylenol Supp) 650 mg Q6H PRN [place] PAIN LEVEL 1-3 OR FEVER; Start 12/14/16 at 02:30 Heparin Sodium (Porcine) 5000 unit 5,000 unit Q8 SC Last administered on t 06:01; Admin Dose 5,000 UNIT; Start 12/14/16 at 06:00; Status Future Hold Cefepime HCl (Maxipime 2gm/50 ml (Pmx)) 50 ml @ 100 mls/hr Q12 IVPB Last administered on 12/15/16 09:35; Admin Dose 100 MLS/HR; Start 12/14/16 at 09:00 Albuterol (Ventolin Hfa) 2 puff Q4H INH Last administered on 12/16/16 06:28; Admin Dose 2 PUFF; Start 12/14/16 at 03:00 Atorvastatin Calcium (Lipitor) 10 mg QHS PO Last administered on 12/16/16 00: 47; Admin Dose 10 MG; Start 12/14/16 at 21:00 Lorazepam (Ativan) 1 mg BID PRN PO ANXIETY Last administered on 12/15/16 00:09 ; Admin Dose 1 MG; Start 12/14/16 at 03:00 Quetiapine Fumarate (Seroquel) 100 mg HS PO Last administered on 12/16/16 00: 47; Admin Dose 100 MG; Start 12/14/16 at 21:00 Quetiapine Fumarate (Seroquel) 200 mg DAILY PO Last administered on 12/14/16 17 :08; Admin Dose 200 MG; Start 12/14/16 at 09:00 Tiotropium [place] (Spiriva) 18 inh DAILY INH ; Start 12/14/16 at 09:00 Tramadol HCl (Ultram) 50 mg Q6H PRN PO PAIN Last administered on 12/15/16 00:09 ; Admin Dose 50 MG; Start 12/14/16 at 03:00 Valproate Sodium (Depakene Liquid Cup) 1,250 mg BID PO Last administered on 02:50; Admin Dose 1,250 MG; Start 12/14/16 at 09:00 Apixaban 5 mg 5 mg BID PO Last administered on 12/16/16 00:47; Admin Dose 5 MG ; Start 12/14/16 at 09:00 Vancomycin HCl/ Sodium Chloride (Vancocin/NS) 250 ml @ 83.333 mls/ hr Q12H IVPB ; Start 12/16/16 at 01:00 ANIKA BROWNLEE MD Dec 16, 2016 08:56
[2016-12-16] MEDS: TIOTROPIUM 18 MCG CAPSULE INHA DEV INH SCH (09:00)
[2016-12-16] MEDS ORDERED: LEVOFLOXACIN 750 MG TABLET PO ONE (09:00)
[2016-12-16] MEDS ORDERED: BARIUM SULFATE 135 ML (E-Z HD) PO ONE (14:48)
[2016-12-16 14:59] VITALS: BP 138/68; RESP 18
[2016-12-16 20:09] VITALS: BP 136/66; RESP 19
[2016-12-17 02:15] VITALS: BP 130/69; RESP 19
[2016-12-17] MEDS: ALBUTEROL 18 GM INHALER INH SCH ×6 (03:00→22:46)
[2016-12-17] MEDS: LEVOTHYROXINE 50 MCG TAB PO SCH (05:48)
[2016-12-17] MEDS ORDERED: LEVOFLOXACIN 750 MG TABLET PO SCH (06:00)
[2016-12-17] MEDS: traMADol 50 MG TAB PO PRN ×2 (07:57→18:20)
[2016-12-17] MEDS: TIOTROPIUM 18 MCG CAPSULE INHA DEV INH SCH (07:59)
[2016-12-17 08:00] VITALS: BP 118/65; RESP 18
[2016-12-17] MEDS: APIXABAN 5 MG TABLET PO SCH ×2 (08:00→22:45)
[2016-12-17] MEDS: QUETIAPINE 100 MG TAB PO SCH ×2 (08:00→22:45)
--- NOTE | 2016-12-17 10:40 | RADRPT ---
PROCEDURE: Video-fluoroscopy swallowing study. CLINICAL INDICATION: Dysphagia. TECHNIQUE: Fluoroscopic guided video swallowing study was done in conjunction with the speech ther apist. The study was confined to the oral, pharyngeal, and cervical phases of the swallowing mechani sm. 3.9 minutes of fluoroscopy time was used. 41 series of images were obtained. COMPARISON: No prior study is available for comparison. FINDINGS: There is silent aspiration during swallowing. IMPRESSION: 1. Abnormal study with silent aspiration during swallowing. 2. Please refer to the speech therapist's recommendations for future feedings. RPTAT: QQ .Carrington Berrios MD, MD Date Time Electronically viewed and signed by .Carrington Berrios MD, on 12/17/2016 10:39 .R/
[2016-12-17 14:00] VITALS: BP 120/72; RESP 20
--- NOTE | 2016-12-17 15:38 | PN ---
Date/Time of Note Date/Time of Note DATE: 12/17/16 TIME: 15:29 Assessment/Plan VTE Prophylaxis VTE Prophylaxis Intervention: SCD's Lines/Catheters IV Catheter Type (from Nrs): Peripheral IV Urinary Cath still in place: No Assessment/Plan Assessment/Plan 61 yo M with ?dementia who lives at a SNF admitted for fever and tachycardia. Lung imaging with infiltrates. Pt with sepsis from pneumonia, pathogen not yet defined #PNA: given resolution of abnormal temperature and HR, convert from broad spectrum abx to CAP coverage with IV ceftriaxone and IV azithro (as unable to tolerate PO ) plan for 7 total days of abx (Pt admitted 8.7) check sputum culture-->does not appear to have been done blood cultures in process-->1/2 CONS. f/u neg. likely contaminant strep urine Ag #dysphagia: likely 2/2 underlying dementia. PO meds on hold. ST following home PO meds on hold given dysphagia dispo planning; Pt with dysphagia, likely 2/2 his underlying dementia process which has caused him to have a public guardian for the past 8 years. Dw his conservator, etio of his dementia and it's progression or lack therefore is unknown. Talked to ST. Based on dysphagia severity unlikely pt will shortly improve to point where he can tolerate PO. This is now an issue of goals of care. Dw conservator that options are PEG v comfort feeds. Neither eliminates risk of aspiration as pt will have secretions regardless. At this time guardian requesting the to review pt's chart regarding his dementia hx. PLAN f/u with guardian Tuesday re PEG issue though I would not be inclined to pursue for this patient Subjective 24 Hr Interval Summary Free Text/Dictation Pt without any IV access for much of yesterday. Pt my discussion with ST service , unlikely to recover ability to tolerate PO safely. Per discussion with conservator, pt has been under the supervision of the public guardian's office for the past 8 years. Etio of inability to care for self unknown Exam/Review of Systems Vital Signs Vitals Vital Signs Date Time Temp Pulse Resp B/P Pulse Ox O2 Delivery O2 Flow Rate FiO2 12/17/16 14:00 97.8 64 20 120/72 96 12/17/16 08:00 2.0 12/14/16 01:45 Nasal Cannula Intake and Output 12/16/16 12/16/1612/17/17 15:00 23:00 07:00 Intake Total 320 ml 40 ml Output Total 550 ml Balance -230 ml 40 ml Exam nad, sitting up in bed no mrg lungs clearing up abd soft no rashes Results Result Diagram: 12/14/16 0334 12/16/16 0510 Medications Medications Current Medications Ondansetron HCl (Zofran Inj) 4 mg Q6H PRN IV NAUSEA AND/OR VOMITING; Start 12/14 at 02:30 Acetaminophen (Tylenol Supp) 650 mg Q6H PRN [place] PAIN LEVEL 1-3 OR FEVER; Start 12/14/16 at 02:30 Heparin Sodium (Porcine) (Heparin (5000 Units/0.5 ml)) 5,000 unit Q8 SC Last administered on 12/14/16 06:01; Admin Dose 5,000 UNIT; Start 12/14/16 at 06:00; Status Future Hold Albuterol (Ventolin Hfa) 2 puff Q4H INH Last administered on 12/17/16 14:52; Admin Dose 2 PUFF; Start 12/14/16 at 03:00 Atorvastatin Calcium (Lipitor) 10 mg QHS PO Last administered on 12/16/16 22: 42; Admin Dose 10 MG; Start 12/14/16 at 21:00 Lorazepam (Ativan) 1 mg BID PRN PO ANXIETY Last administered on 12/15/16 00:09 ; Admin Dose 1 MG; Start 12/14/16 at 03:00 Quetiapine Fumarate (Seroquel) 100 mg HS PO Last administered on 12/16/16 22: 42; Admin Dose 100 MG; Start 12/14/16 at 21:00 Quetiapine Fumarate (Seroquel) 200 mg DAILY PO Last administered on 12/17/16 08:00; Admin Dose 200 MG; Start 12/14/16 at 09:00 Tiotropium [place] (Spiriva) 18 inh DAILY INH ; Start 12/14/16 at 09:00 Tramadol HCl (Ultram) 50 mg Q6H PRN PO PAIN Last administered on 12/17/16 07: 57; Admin Dose 50 MG; Start 12/14/16 at 03:00 Apixaban (Eliquis) 5 mg BID PO Last administered on 12/17/16 08:00; Admin Dose 5 MG; Start 12/14/16 at 09:00 Levofloxacin (Levaquin) 750 mg DAILY@06 PO Last administered on 12/17/16t 05:48 ; Admin Dose 750 MG; Start 12/17/16 at 06:00 ANIKA BROWNLEE MD Dec 17, 2016 15:38
--- NOTE | 2016-12-17 17:27 | RADRPT ---
PROCEDURE: US guidance for PICC line CLINICAL INDICATION: PICC line placement TECHNIQUE: Multiple real-time images were acquired of the patient's arm utilizing a high resolutio n transducer. This was performed by the PICC line nurse for venous access. COMPARISON: None FINDINGS: Ultrasound guidance for PICC line placement. IMPRESSION: Ultrasound guidance for PICC line placement. RPTAT: AA .Hardeep Boyd MD, MD Date Time Electronically viewed and signed by .Hardeep Boyd MD, on 12/17/2016 17:26 .S/
--- NOTE | 2016-12-17 17:34 | RADRPT ---
PROCEDURE: Portable chest x-ray. CLINICAL INDICATION: 61-year-old male. PICC line placement.. TECHNIQUE: Portable AP view of the chest. COMPARISON: Report of chest CT December 13, 2016. FINDINGS: There is a right arm PICC line with the tip over the right atrium. Suggest withdrawing the line 5 c m to the cavoatrial junction. Mildly tortuous thoracic aorta. Normal heart size. There is increased opacity in the the right lung greatest in the upper lung zone and there is patchy opacity at the left lung base concerning for multifocal infection. Bronchial wall thickening. Negative for pleural effusion or pneumothorax.. No acute bony abnormality. There is oral contrast in the bowel in the left upper quadrant of the abdomen. IMPRESSION: Right arm PICC line with tip over right atrium. Suggest withdrawing the line 5 cm to the cavoatrial junction. Multi focal lung consolidation concerning for multifocal infection also described on recent chest CT . 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 RPTAT: HCTS Physician Anmol Date Time Electronically viewed and signed by Physician Anmol on 12/17/2016 17:34 /
[2016-12-17] MEDS: CEFTRIAXONE 1 GM/50 ML (PMX) 50 ML IVPB SCH (18:11)
[2016-12-17] MEDS: AZITHROMYCIN 500 MG in SOD CHLORIDE 0.9% 250 ML IVPB SCH (18:51)
[2016-12-17 20:18] VITALS: BP 118/66; RESP 18
[2016-12-17] MEDS: ATORVASTATIN 10 MG TAB PO SCH (22:46)
[2016-12-18 02:40] VITALS: BP 117/61; RESP 16
[2016-12-18] MEDS: ALBUTEROL 18 GM INHALER INH SCH ×6 (03:11→23:20)
[2016-12-18] MEDS: SOD CHLORIDE 0.9% 1,000 ML IV SCH ×2 (03:33→17:10)
[2016-12-18] MEDS: traMADol 50 MG TAB PO PRN ×4 (03:37→23:20)
[2016-12-18] MEDS: LEVOTHYROXINE 50 MCG TAB PO SCH (06:19)
[2016-12-18 07:28] VITALS: BP 124/68; RESP 20
[2016-12-18] MEDS: QUETIAPINE 100 MG TAB PO SCH ×2 (08:06→20:44)
[2016-12-18] MEDS: APIXABAN 5 MG TABLET PO SCH ×2 (08:06→20:44)
[2016-12-18] MEDS: TIOTROPIUM 18 MCG CAPSULE INHA DEV INH SCH (08:06)
[2016-12-18 14:00] VITALS: BP 122/66; RESP 22
[2016-12-18] MEDS: CEFTRIAXONE 1 GM/50 ML (PMX) 50 ML IVPB SCH (16:38)
[2016-12-18] MEDS: AZITHROMYCIN 500 MG in SOD CHLORIDE 0.9% 250 ML IVPB SCH (17:10)
--- NOTE | 2016-12-18 17:39 | PN ---
Date/Time of Note Date/Time of Note DATE: 12/18/16 TIME: 17:37 Assessment/Plan VTE Prophylaxis VTE Prophylaxis Intervention: SCD's Lines/Catheters IV Catheter Type (from Nrsg): PICC Line Urinary Cath still in place: No Subjective 24 Hr Interval Summary Free Text/Dictation Tries to get out of bed at night Exam/Review of Systems Vital Signs Vitals Vital Signs Date Time Temp Pulse Resp B/P Pulse Ox O2 Delivery O2 Flow Rate FiO2 12/18/16 16:41 98.8 12/18/16 14:00 90 22 122/66 95 12/18/16 05:04 4.0 Intake and Output 12/17/16 12/17/16 12/18/16 14:59 22:59 06:59 Intake Total 340 ml 150 ml Balance 340 ml 150 ml Exam Assessment/Plan 61 yo M with ?dementia who lives at a SNF admitted for fever and tachycardia. Lung imaging with infiltrates. Pt with sepsis from pneumonia, pathogen not yet defined #PNA: given resolution of abnormal temperature and HR, convert from broad spectrum abx to CAP coverage with IV ceftriaxone and IV azithro (as unable to tolerate PO ) plan for 7 total days of abx (Pt admitted 8.7) check sputum culture-->does not appear to have been done blood cultures in process-->1/2 CONS. f/u neg. likely contaminant strep urine Ag #dysphagia: likely 2/2 underlying dementia. PO meds on hold. ST following home PO meds on hold given dysphagia dispo planning; Pt with dysphagia, likely 2/2 his underlying dementia process which has caused him to have a public guardian for the past 8 years. Dw his conservator on 12.17, etio of his dementia and its progression or lack thereof is unknown. Talked to ST. Based on dysphagia severity unlikely pt will shortly improve to point where he can tolerate PO. This is now an issue of goals of care. Dw conservator that options are PEG v comfort feeds. Neither eliminates risk of aspiration as pt will have secretions regardless. At this time guardian requesting the to review pt's chart regarding his dementia hx. PLAN f/u with guardian Tuesday re PEG issue though I would not be inclined to pursue for this patient Results Result Diagram: 12/14/16 0334 12/16/16 0510 Medications Medications Current Medications Ondansetron HCl (Zofran Inj) 4 mg Q6H PRN IV NAUSEA AND/OR VOMITING; Start 12/14 at 02:30 Acetaminophen (Tylenol Supp) 650 mg Q6H PRN [place] PAIN LEVEL 1-3 OR FEVER; Start 12/14/16 at 02:30 Heparin Sodium (Porcine) (Heparin (5000 Units/0.5 ml)) 5,000 unit Q8 SC Last administered on 12/14/16 06:01; Admin Dose 5,000 UNIT; Start 12/14/16 at 06:00; Status Future Hold Albuterol (Ventolin Hfa) 2 puff Q4H INH Last administered on 12/18/16 15:24; Admin Dose 2 PUFF; Start 12/14/16 at 03:00 Atorvastatin Calcium (Lipitor) 10 mg QHS PO Last administered on 12/17/16 22: 46; Admin Dose 10 MG; Start 12/14/16 at 21:00 Lorazepam (Ativan) 1 mg BID PRN PO ANXIETY Last administered on 12/15/16 00:09 ; Admin Dose 1 MG; Start 12/14/16 at 03:00 Quetiapine Fumarate (Seroquel) 100 mg HS PO Last administered on 12/17/16 22: 45; Admin Dose 100 MG; Start 12/14/16 at 21:00 Quetiapine Fumarate (Seroquel) 200 mg DAILY PO Last administered on 12/18/16 08:06; Admin Dose 200 MG; Start 12/14/16 at 09:00 Tiotropium [place] (Spiriva) 18 inh DAILY INH Last administered on 12/18/16 08 :06; Admin Dose 18 INH; Start 12/14/16 at 09:00 Tramadol HCl (Ultram) 50 mg Q6H PRN PO PAIN Last administered on 12/18/16 16: 38; Admin Dose 50 MG; Start 12/14/16 at 03:00 Apixaban 5 mg 5 mg BID PO Last administered on 12/18/16 08:06; Admin Dose 5 MG ; Start 12/14/16 at 09:00 Ceftriaxone Sodium 50 ml @ 100 mls/hr Q24H IVPB Last administered on 16:38; Admin Dose 100 MLS/HR; Start 12/17/16 at 16:30 Azithromycin/ Sodium Chloride (Zithromax/NS) 250 ml @ 250 mls/hr Q24H IVPB Last administered on 12/18/16 17:10; Admin Dose 250 MLS/HR; Start 12/17/16 at 18:00 IV Flush 10 ml 10 ml PRN PRN IV FLUSH LINE; Start 12/17/16 at 18:00 Sodium Chloride (NS) 1,000 ml @ 75 mls/hr [id number] IV Last administered on 12/18 17:10; Admin Dose 75 MLS/HR; Start 12/18/16 at 03:30 Acetaminophen (Tylenol Tab) 650 mg Q6H PRN PO PAIN AND OR ELEVATED TEMP; Start 12/18/16 at 14:30 ANIKA BROWNLEE MD Dec 18, 2016 17:38
[2016-12-18] MEDS: ACETAMINOPHEN 325 MG TAB PO PRN (18:15)
[2016-12-18 19:57] VITALS: BP 140/61; RESP 21
[2016-12-18] MEDS: ATORVASTATIN 10 MG TAB PO SCH (20:44)
[2016-12-19 02:00] VITALS: BP 124/64; PULSE 77; RESP 18
[2016-12-19] MEDS: ALBUTEROL 18 GM INHALER INH SCH ×6 (03:36→22:28)
[2016-12-19] MEDS: LEVOTHYROXINE 50 MCG TAB PO SCH (06:22)
[2016-12-19] MEDS: SOD CHLORIDE 0.9% 1,000 ML IV SCH ×2 (06:22→22:25)
[2016-12-19] MEDS: traMADol 50 MG TAB PO PRN ×2 (06:22→13:18)
[2016-12-19 07:58] VITALS: BP 123/64; RESP 20
[2016-12-19] MEDS: QUETIAPINE 100 MG TAB PO SCH ×2 (08:32→20:18)
[2016-12-19] MEDS: TIOTROPIUM 18 MCG CAPSULE INHA DEV INH SCH (08:32)
[2016-12-19] MEDS: APIXABAN 5 MG TABLET PO SCH ×2 (08:32→20:18)
[2016-12-19] MEDS: ACETAMINOPHEN 325 MG TAB PO PRN (08:37)
--- NOTE | 2016-12-19 10:31 | PN ---
Date/Time of Note Date/Time of Note DATE: 12/19/16 TIME: 10:30 Assessment/Plan VTE Prophylaxis VTE Prophylaxis Intervention: SCD's Lines/Catheters IV Catheter Type (from Nrsg): PICC Line Central line still needed: Yes Urinary Cath still in place: No Assessment/Plan Assessment/Plan 61 yo M with ?dementia who lives at a SNF admitted for fever and tachycardia. Lung imaging with infiltrates. Pt with sepsis from pneumonia, pathogen not yet defined #PNA: given resolution of abnormal temperature and HR, convert from broad spectrum abx to CAP coverage with IV ceftriaxone and IV azithro (as unable to tolerate PO ) plan for 7 total days of abx (Pt admitted 8.7) -->STOP DATE OF TOMORROW ENTERED FOR ABX check sputum culture-->does not appear to have been done blood cultures in process-->1/2 CONS. f/u neg. likely contaminant strep urine Ag does not appear to have been done either #dysphagia: likely 2/2 underlying dementia. PO meds on hold. ST following home PO meds on hold given dysphagia dispo planning; Pt with dysphagia, likely 2/2 his underlying dementia process which has caused him to have a public guardian for the past 8 years. Dw his conservator on 12.17, etio of his dementia and its progression or lack thereof is unknown. Talked to ST. Based on dysphagia severity unlikely pt will shortly improve to point where he can tolerate PO. This is now an issue of goals of care. Dw conservator that options are PEG v comfort feeds. Neither eliminates risk of aspiration as pt will have secretions regardless. At this time guardian requesting the to review pt's chart regarding his dementia hx. PLAN f/u with guardian Tuesday re PEG issue though I would not be inclined to pursue for this patient Subjective 24 Hr Interval Summary Free Text/Dictation Not trying to get out of bed as aggressively Exam/Review of Systems Vital Signs Vitals Vital Signs Date Time Temp Pulse Resp B/P Pulse Ox O2 Delivery O2 Flow Rate FiO2 12/19/16 07:58 98.5 80 20 123/64 97 12/19/16 06:44 5.0 12/19/16 02:00 Nasal Cannula Intake and Output 12/18/16 12/18/16 12/19/16 15:00 23:00 07:00 Intake Total 1050 ml Balance 1050 ml Exam nad, sitting up in bed no mrg lungs clear abd soft no rashes Results Result Diagram: 12/16/16 0510 Results 24 hrs Laboratory Tests Test 12/19/16 10:24 Lab Scanned Report REFERENCE LAB Medications Medications Current Medications Ondansetron HCl (Zofran Inj) 4 mg Q6H PRN IV NAUSEA AND/OR VOMITING; Start 12/14 at 02:30 Acetaminophen (Tylenol Supp) 650 mg Q6H PRN [place] PAIN LEVEL 1-3 OR FEVER; Start 12/14/16 at 02:30 Heparin Sodium (Porcine) (Heparin (5000 Units/0.5 ml)) 5,000 unit Q8 SC Last administered on 12/14/16 06:01; Admin Dose 5,000 UNIT; Start 12/14/16 at 06:00; Status Future Hold Albuterol (Ventolin Hfa) 2 puff Q4H INH Last administered on 12/19/16 06:22; Admin Dose 2 PUFF; Start 12/14/16 at 03:00 Atorvastatin Calcium (Lipitor) 10 mg QHS PO Last administered on 12/18/16 20: 44; Admin Dose 10 MG; Start 12/14/16 at 21:00 Lorazepam (Ativan) 1 mg BID PRN PO ANXIETY Last administered on 12/15/16 00:09 ; Admin Dose 1 MG; Start 12/14/16 at 03:00 Quetiapine Fumarate (Seroquel) 100 mg HS PO Last administered on 12/18/16 20: 44; Admin Dose 100 MG; Start 12/14/16 at 21:00 Quetiapine Fumarate (Seroquel) 200 mg DAILY PO Last administered on 12/19/16 08:32; Admin Dose 200 MG; Start 12/14/16 at 09:00 Tiotropium [place] (Spiriva) 18 inh DAILY INH Last administered on 12/19/16 08 :32; Admin Dose 18 INH; Start 12/14/16 at 09:00 Tramadol HCl (Ultram) 50 mg Q6H PRN PO PAIN Last administered on 12/19/16 06: 22; Admin Dose 50 MG; Start 12/14/16 at 03:00 Apixaban 5 mg 5 mg BID PO Last administered on 12/19/16 08:32; Admin Dose 5 MG ; Start 12/14/16 at 09:00 Ceftriaxone Sodium 50 ml @ 100 mls/hr Q24H IVPB Last administered on 16:38; Admin Dose 100 MLS/HR; Start 12/17/16 at 16:30 Azithromycin/ Sodium Chloride (Zithromax/NS) 250 ml @ 250 mls/hr Q24H IVPB Last administered on 12/18/16 17:10; Admin Dose 250 MLS/HR; Start 12/17/16 at 18:00 IV Flush 10 ml 10 ml PRN PRN IV FLUSH LINE; Start 12/17/16 at 18:00 Sodium Chloride (NS) 1,000 ml @ 75 mls/hr [id number] IV Last administered on 12/19 06:22; Admin Dose 75 MLS/HR; Start 12/18/16 at 03:30 Acetaminophen (Tylenol Tab) 650 mg Q6H PRN PO PAIN AND OR ELEVATED TEMP Last administered on 12/19/16 08:37; Admin Dose 650 MG; Start 12/18/16 at 14:30 ANIKA BROWNLEE MD Dec 19, 2016 10:31
[2016-12-19 11:24] VITALS: PULSE 79
[2016-12-19 15:06] VITALS: BP 122/63; RESP 20
[2016-12-19] MEDS: CEFTRIAXONE 1 GM/50 ML (PMX) 50 ML IVPB SCH (15:43)
[2016-12-19] MEDS: AZITHROMYCIN 500 MG in SOD CHLORIDE 0.9% 250 ML IVPB SCH (17:24)
[2016-12-19] MEDS: morphine 2 MG INJ IV PRN (20:10)
[2016-12-19] MEDS: ATORVASTATIN 10 MG TAB PO SCH (20:18)
[2016-12-19 20:27] VITALS: BP 109/58; RESP 20
[2016-12-20 00:08] VITALS: BP 132/63; PULSE 69
[2016-12-20] MEDS: morphine 2 MG INJ IV PRN ×5 (00:08→23:43)
[2016-12-20] MEDS: ALBUTEROL 18 GM INHALER INH SCH ×6 (02:30→22:50)
[2016-12-20 03:03] VITALS: BP 133/63; RESP 20
[2016-12-20] MEDS: LEVOTHYROXINE 50 MCG TAB PO SCH (06:30)
[2016-12-20 08:24] VITALS: BP 125/62; RESP 19
[2016-12-20] MEDS: TIOTROPIUM 18 MCG CAPSULE INHA DEV INH SCH (09:00)
[2016-12-20] MEDS: QUETIAPINE 100 MG TAB PO SCH ×2 (09:00→21:00)
[2016-12-20] MEDS: APIXABAN 5 MG TABLET PO SCH ×2 (09:00→21:00)
[2016-12-20] MEDS: SOD CHLORIDE 0.9% 1,000 ML IV SCH ×3 (10:19→23:00)
[2016-12-20 14:29] VITALS: BP 124/79; RESP 18
--- NOTE | 2016-12-20 15:33 | PN ---
Date/Time of Note Date/Time of Note DATE: 12/20/16 TIME: 15:19 Assessment/Plan VTE Prophylaxis VTE Prophylaxis Intervention: SCD's, other (Eliquis) Lines/Catheters [facility] P[facility] Line Central line still needed: Yes Urinary Cath still in place: No Assessment/Plan Chief Complaint/Hosp Course Assessment/Plan: 61 yo M with ?dementia who lives at a SNF admitted for fever and tachycardia. Lung imaging with infiltrates. Pt with sepsis from pneumonia #PNA: given resolution of abnormal temperature and HR, convert from broad spectrum abx to CAP coverage with IV ceftriaxone and IV azithro (as unable to tolerate PO ) plan for 7 total days of abx (Pt admitted 8.7) -Continue to monitor for now -Follow-up sputum culture - strep urine Ag does not appear to have been done [id number] results of this #dysphagia: likely 2/2 underlying dementia. PO meds on hold. ST following -We will reconsult speech therapy team -Per discussion with patient today, he is refusing any consideration for PEG tube placement at this time. Will follow up with speech therapy re-eval -Holding home PO meds given dysphagia #DVT prophylaxis: Again, patient states he believes he may have been diagnosed with blood clot, but is not aware what part of his body, a few months ago, and believes he started Eliquis at that time. -Given dysphasia, holding Eliquis for now, we will add SCDs. dispo planning; Pt with dysphagia, likely 2/2 his underlying dementia process which has caused him to have a public guardian for the past 8 years. Dw his conservator on 12.17, etio of his dementia and its progression or lack thereof is unknown. Based on dysphagia severity unlikely pt will shortly improve to point where he can tolerate PO. Again will reevaluate speech therapy team This is now an issue of goals of care. Dw conservator that options are PEG v comfort feeds. Neither eliminates risk of aspiration as pt will have secretions regardless. At this time guardian requesting the weekend to review pt's chart regarding his dementia hx. Problems: Subjective 24 Hr Interval Summary Free Text/Dictation Patient had no acute events overnight. Asking if he is going to get better. Patient does mention he may have been diagnosed with blood clot a few months ago at another city. Exam/Review of Systems Vital Signs Vitals Vital Signs Date Time Temp Pulse Resp B/P Pulse Ox O2 Delivery O2 Flow Rate FiO2 12/20/16 14:55 Nasal Cannula 2.0 12/20/16 14:29 98.2 70 18 124/79 99 Intake and Output 12/19/16 12/19/16 12/20/16 15:00 23:00 07:00 Intake Total 1200 ml 487.5 ml Balance 1200 ml 487.5 ml Exam nad, sitting up in bed, answering questions no mrg lungs clear abd soft no lower extremity edema bilateral No focal deficits Results Result Diagram: 12/16/16 0510 Medications Medications Current Medications Ondansetron HCl (Zofran Inj) 4 mg Q6H PRN IV NAUSEA AND/OR VOMITING; Start 12/14 at 02:30 Acetaminophen (Tylenol Supp) 650 mg Q6H PRN [place] PAIN LEVEL 1-3 OR FEVER; Start 12/14/16 at 02:30 Heparin Sodium (Porcine) (Heparin (5000 Units/0.5 ml)) 5,000 unit Q8 SC Last administered on 12/14/16 06:01; Admin Dose 5,000 UNIT; Start 12/14/16 at 06:00; Status Future Hold Albuterol (Ventolin Hfa) 2 puff Q4H INH Last administered on 12/20/16 10:20; Admin Dose 2 PUFF; Start 12/14/16 at 03:00 Atorvastatin Calcium (Lipitor) 10 mg QHS PO Last administered on 12/18/16 20: 44; Admin Dose 10 MG; Start 12/14/16 at 21:00 Lorazepam (Ativan) 1 mg BID PRN PO ANXIETY Last administered on 12/15/16 00:09 ; Admin Dose 1 MG; Start 12/14/16 at 03:00 Quetiapine Fumarate (Seroquel) 100 mg HS PO Last administered on 12/18/16 20: 44; Admin Dose 100 MG; Start 12/14/16 at 21:00 Quetiapine Fumarate (Seroquel) 200 mg DAILY PO Last administered on 12/19/16 08:32; Admin Dose 200 MG; Start 12/14/16 at 09:00 Tiotropium [place] (Spiriva) 18 inh DAILY INH Last administered on 12/19/16 08 :32; Admin Dose 18 INH; Start 12/14/16 at 09:00 Tramadol HCl (Ultram) 50 mg Q6H PRN PO PAIN Last administered on 12/19/16 13: 18; Admin Dose 50 MG; Start 12/14/16 at 03:00 Apixaban 5 mg 5 mg BID PO Last administered on 12/19/16 08:32; Admin Dose 5 MG ; Start 12/14/16 at 09:00 Ceftriaxone Sodium 50 ml @ 100 mls/hr Q24H IVPB Last administered on 15:43; Admin Dose 100 MLS/HR; Start 12/17/16 at 16:30; Stop 12/20/16 at 23: 59 Azithromycin/ Sodium Chloride (Zithromax/NS) 250 ml @ 250 mls/hr Q24H IVPB Last administered on 12/19/16 17:24; Admin Dose 250 MLS/HR; Start 12/17/16 at 18:00; Stop 12/20/16 at 23:59 IV Flush 10 ml 10 ml PRN PRN IV FLUSH LINE; Start 12/17/16 at 18:00 Sodium Chloride (NS) 1,000 ml @ 75 mls/hr [id number] IV Last administered on 12/20 10:19; Admin Dose 75 MLS/HR; Start 12/18/16 at 03:30 Acetaminophen (Tylenol Tab) 650 mg Q6H PRN PO PAIN AND OR ELEVATED TEMP Last administered on 12/19/16 08:37; Admin Dose 650 MG; Start 12/18/16 at 14:30 Morphine Sulfate (morphine) 2 mg Q4H PRN IV PAIN Last administered on 11:52; Admin Dose 2 MG; Start 12/19/16 at 20:00 EVELIA JUAN Dec 20, 2016 15:32
[2016-12-20] MEDS: CEFTRIAXONE 1 GM/50 ML (PMX) 50 ML IVPB SCH (16:12)
[2016-12-20] MEDS: AZITHROMYCIN 500 MG in SOD CHLORIDE 0.9% 250 ML IVPB SCH (17:59)
[2016-12-20] MEDS: ATORVASTATIN 10 MG TAB PO SCH (21:00)
[2016-12-20 21:08] VITALS: BP 125/58; RESP 18
[2016-12-21] MEDS: ALBUTEROL 18 GM INHALER INH SCH ×6 (03:19→23:39)
[2016-12-21] MEDS: morphine 2 MG INJ IV PRN ×4 (03:20→18:55)
[2016-12-21 03:28] VITALS: BP 134/61; RESP 19
[2016-12-21 06:10] LABS: BASOPHILS % 0.5 % (0.0-2.0); EOSINOPHILS # 0.1 10^3/ul (0.0-0.5); EOSINOPHILS % 1.4 % (0.0-7.0); HEMATOCRIT 37.9 % (42.0-52.0); HEMOGLOBIN 12.6 g/dl (14.0-18.0); LYMPHOCYTES # 2.1 10^3/ul (0.8-2.9); LYMPHOCYTES % 29.2 % (15.0-51.0); MEAN CORPUSCULAR HEMOGLOBIN 31.3 pg (29.0-33.0); MEAN CORPUSCULAR HGB CONC 33.2 g/dl (32.0-37.0); MEAN PLATELET VOLUME 10.2 fl (7.4-10.4); MONOCYTES % 13.4 % (0.0-11.0); NEUTROPHILS % 55.1 % (39.0-77.0); PLATELET COUNT 206 10^3/UL (140-415); RED BLOOD COUNT 4.03 10^6/ul (4.70-6.10); RED CELL DISTRIBUTION WIDTH 12.5 % (11.5-14.5); WHITE BLOOD COUNT 7.3 10^3/ul (4.8-10.8)
[2016-12-21 06:17] LABS: MAGNESIUM 1.6 mg/dl (1.7-2.5); PHOSPHORUS 2.6 mg/dl (2.5-4.9)
[2016-12-21 06:27] LABS: CALCIUM 8.2 mg/dl (8.4-10.2); CREATININE 0.55 mg/dl (0.61-1.24); POTASSIUM 3.5 mmol/L (3.5-5.1)
[2016-12-21] MEDS: LEVOTHYROXINE 50 MCG TAB PO SCH (07:00)
[2016-12-21 08:00] VITALS: BP 120/56; RESP 20
[2016-12-21] MEDS: APIXABAN 5 MG TABLET PO SCH ×2 (09:00→20:03)
[2016-12-21] MEDS: QUETIAPINE 100 MG TAB PO SCH ×2 (10:00→20:03)
[2016-12-21] MEDS: TIOTROPIUM 18 MCG CAPSULE INHA DEV INH SCH (10:00)
[2016-12-21 14:00] VITALS: BP 141/68; RESP 20
--- NOTE | 2016-12-21 15:36 | PN ---
Date/Time of Note Date/Time of Note DATE: 12/21/16 TIME: 15:30 Assessment/Plan VTE Prophylaxis VTE Prophylaxis Intervention: SCD's, other (Eliquis) Lines/Catheters IV Catheter Type (from [facility]): PICC Line Central line still needed: Yes Urinary Cath still in place: No Assessment/Plan Chief Complaint/Hosp Course Assessment/Plan: 61 yo M with ?dementia who lives at a SNF admitted for fever and tachycardia. Lung imaging with infiltrates. Pt with sepsis from pneumonia #PNA: Improving given resolution of abnormal temperature and HR, convert from broad spectrum abx to CAP coverage with IV ceftriaxone and IV azithro (as unable to tolerate PO ) plan for 7 total days of abx (Pt admitted 8.7) -Continue to monitor for now -Follow-up sputum culture - strep urine Ag does not appear to have been done [id number] results of this #dysphagia: likely 2/2 underlying dementia. PO meds on hold. ST following -Again for now, recommending n.p.o. and consideration of PEG tube placement. Patient her conservator refuses, could try pured nectar thick diet, however high risk of aspiration event happening -See below for more detailed explanation of this #DVT prophylaxis: Again, patient states he believes he may have been diagnosed with blood clot, but is not aware what part of his body, a few months ago, and believes he started Eliquis at that time. -We will try to cautiously re-administer Eliquis p.o with applesauce/putting only as tolerated. #Behavioral disorder/dementia: Continue Seroquel at current dose. #COPD: No present issues, duo nebs as needed dispo planning; Pt with dysphagia, likely 2/2 his underlying dementia process which has caused him to have a public guardian for the past 8 years. Dw his conservator on 12.17, and again with the covering conservator on December 21. etio of his dementia and its progression or lack thereof is unknown. Based on dysphagia severity unlikely pt will shortly improve to point where he can tolerate PO. Speech therapist today recommended keeping the patient n.p.o. and recommended for PEG tube placement. If this is refused, patient is at high risk for aspiration, the benefits of placing PEG tube seem to outweigh the risks of trying to start a pured nectar thick diet given the fact the patient is presently being treated for pneumonia, and could suffer another aspiration pneumonia if we try to feed him through pure or nectar thick feeding. Problems: Subjective 24 Hr Interval Summary Free Text/Dictation Patient yelling out occasionally, otherwise no acute events overnight. I spoke with conservator today over the phone as well to give patient update. Seen by speech therapy team this morning as well. Exam/Review of Systems Vital Signs Vitals Vital Signs Date Time Temp Pulse Resp B/P Pulse Ox O2 Delivery O2 Flow Rate FiO2 12/21/16 10:18 Nasal Cannula 2.0 12/21/16 08:00 99.3 64 20 120/56 96 Intake and Output 12/20/16 12/20/16 12/21/16 15:00 23:00 07:00 Intake Total 512.5 ml 1100 ml 450 ml Balance 512.5 ml 1100 ml 450 ml Exam nad, sitting up in bed, yelling out occasionally no mrg lungs clear abd soft no lower extremity edema bilateral No focal deficits Results Result Diagram: 12/21/16 0532 12/21/16 0532 Results 24 hrs Laboratory Tests Test 12/21/16 05:32 White Blood Count 7.3 # Red Blood Count 4.03 L Hemoglobin 12.6 L Hematocrit 37.9 L Mean Corpuscular Volume 94.0 Mean Corpuscular Hemoglobin 31.3 Mean Corpuscular Hemoglobin Concent 33.2 Red Cell Distribution Width 12.5 Platelet Count 206 # Mean Platelet Volume 10.2 Neutrophils % 55.1 Lymphocytes % 29.2 Monocytes % 13.4 H Eosinophils % 1.4 Basophils % 0.5 Nucleated Red Blood Cells % 0.0 Neutrophils # (Manual) 4.0 Lymphocytes # 2.1 Monocytes # 1.0 H Eosinophils # 0.1 Basophils # 0.0 Nucleated Red Blood Cells # 0.0 Sodium Level 135 Potassium Level 3.5 Chloride Level 107 Carbon Dioxide Level 17 L Anion Gap 15 Blood Urea Nitrogen 11 Creatinine 0.55 L Glucose Level 70 Calcium Level 8.2 L Phosphorus Level 2.6 Magnesium Level 1.6 L Creatine Kinase 37 Medications Medications Current Medications Ondansetron HCl (Zofran Inj) 4 mg Q6H PRN IV NAUSEA AND/OR VOMITING; Start 12/14 at 02:30 Acetaminophen (Tylenol Supp) 650 mg Q6H PRN [place] PAIN LEVEL 1-3 OR FEVER; Start 12/14/16 at 02:30 Heparin Sodium (Porcine) (Heparin (5000 Units/0.5 ml)) 5,000 unit Q8 SC Last administered on 12/14/16 06:01; Admin Dose 5,000 UNIT; Start 12/14/16 at 06:00; Status Future Hold Albuterol (Ventolin Hfa) 2 puff Q4H INH Last administered on 12/21/16 06:34; Admin Dose 2 PUFF; Start 12/14/16 at 03:00 Atorvastatin [place] (Lipitor) 10 mg QHS PO Last administered on 12/18/16 20: 44; Admin Dose 10 MG; Start 12/14/16 at 21:00 Lorazepam (Ativan) 1 mg BID PRN PO ANXIETY Last administered on 12/15/16 00:09 ; Admin Dose 1 MG; Start 12/14/16 at 03:00 Quetiapine Fumarate (Seroquel) 100 mg HS PO Last administered on 12/18/16 20: 44; Admin Dose 100 MG; Start 12/14/16 at 21:00 Quetiapine Fumarate (Seroquel) 200 mg DAILY PO Last administered on 12/19/16 08:32; Admin Dose 200 MG; Start 12/14/16 at 09:00 Tiotropium [place] (Spiriva) 18 inh DAILY INH Last administered on 12/21/16 10 :00; Admin Dose 18 INH; Start 12/14/16 at 09:00 Tramadol HCl (Ultram) 50 mg Q6H PRN PO PAIN Last administered on 12/19/16 13: 18; Admin Dose 50 MG; Start 12/14/16 at 03:00 Apixaban (Eliquis) 5 mg BID PO Last administered on 12/19/16 08:32; Admin Dose 5 MG; Start 12/14/16 at 09:00 IV Flush (NS 10 ml) 10 ml PRN PRN IV FLUSH LINE; Start 12/17/16 at 18:00 Acetaminophen (Tylenol Tab) 650 mg Q6H PRN PO PAIN AND OR ELEVATED TEMP Last administered on 12/19/16 08:37; Admin Dose 650 MG; Start 12/18/16 at 14:30 Morphine Sulfate 2 mg 2 mg Q4H PRN IV PAIN Last administered on 12/21/16 13:29 ; Admin Dose 2 MG; Start 12/19/16 at 20:00 Magnesium Sulfate (Magnesium Sulfate 2 Gm/50 ml) 50 ml @ 25 mls/hr ONCE ONCE IVPB ; Start 12/21/16 at 17:00; Stop 12/21/16 at 18:59 Mupirocin 1 applic 1 applic BID TOP ; Start 12/21/16 at 21:00 Dextrose/Sodium Chloride (D5-1/2ns) 1,000 ml @ 75 mls/hr [id number] IV ; Start at 15:30; Status EVELIA LOPEZ Dec 21, 2016 15:36
[2016-12-21] MEDS: DEXTROSE 5%-0.45% NACL 1,000 ML IV SCH (16:06)
[2016-12-21] MEDS: traMADol 50 MG TAB PO PRN (16:37)
[2016-12-21] MEDS ORDERED: MAGNESIUM SULFATE 2 GM/50 ML 50 ML IVPB ONE (17:00)
[2016-12-21 20:02] VITALS: BP 144/66; RESP 18
[2016-12-21] MEDS: ATORVASTATIN 10 MG TAB PO SCH (20:03)
[2016-12-21] MEDS: MUPIROCIN 2% 22 GM OINT TOP SCH (20:03)
[2016-12-22] MEDS: morphine 2 MG INJ IV PRN ×3 (02:48→13:24)
[2016-12-22] MEDS: ALBUTEROL 18 GM INHALER INH SCH ×5 (02:48→22:24)
[2016-12-22 02:53] VITALS: BP 127/67; RESP 18
[2016-12-22] MEDS: DEXTROSE 5%-0.45% NACL 1,000 ML IV SCH ×3 (04:50→18:10)
[2016-12-22 06:05] LABS: BASOPHILS % 0.4 % (0.0-2.0); EOSINOPHILS # 0.1 10^3/ul (0.0-0.5); EOSINOPHILS % 1.8 % (0.0-7.0); HEMATOCRIT 39.9 % (42.0-52.0); HEMOGLOBIN 13.7 g/dl (14.0-18.0); LYMPHOCYTES # 2.2 10^3/ul (0.8-2.9); LYMPHOCYTES % 30.1 % (15.0-51.0); MEAN CORPUSCULAR HEMOGLOBIN 31.8 pg (29.0-33.0); MEAN CORPUSCULAR HGB CONC 34.3 g/dl (32.0-37.0); MEAN CORPUSCULAR VOLUME 92.6 fl (82.0-101.0); MEAN PLATELET VOLUME 10.2 fl (7.4-10.4); MONOCYTE # 0.8 10^3/ul (0.3-0.9); MONOCYTES % 11.1 % (0.0-11.0); NEUTROPHILS % 56.3 % (39.0-77.0); PLATELET COUNT 253 10^3/UL (140-415); RED BLOOD COUNT 4.31 10^6/ul (4.70-6.10); RED CELL DISTRIBUTION WIDTH 12.5 % (11.5-14.5); WHITE BLOOD COUNT 7.4 10^3/ul (4.8-10.8)
[2016-12-22] MEDS: LEVOTHYROXINE 50 MCG TAB PO SCH (06:08)
[2016-12-22 06:32] LABS: CALCIUM 8.4 mg/dl (8.4-10.2); CREATININE 0.51 mg/dl (0.61-1.24); POTASSIUM 3.3 mmol/L (3.5-5.1)
[2016-12-22 08:38] VITALS: BP 133/65; RESP 18
[2016-12-22] MEDS: APIXABAN 5 MG TABLET PO SCH ×2 (09:04→22:24)
[2016-12-22] MEDS: TIOTROPIUM 18 MCG CAPSULE INHA DEV INH SCH (09:05)
[2016-12-22] MEDS: MUPIROCIN 2% 22 GM OINT TOP SCH ×2 (09:07→22:24)
[2016-12-22] MEDS: LORAZEPAM 1 MG TAB PO PRN (10:45)
[2016-12-22] MEDS: traMADol 50 MG TAB PO PRN (11:35)
[2016-12-22] MEDS: QUETIAPINE 100 MG TAB PO SCH ×2 (13:38→22:24)
[2016-12-22] MEDS ORDERED: POTASSIUM CHLORIDE (SR) 20 MEQ TAB PO STA (14:29)
--- NOTE | 2016-12-22 14:50 | PN ---
Date/Time of Note Date/Time of Note DATE: 12/22/16 TIME: 14:47 Assessment/Plan VTE Prophylaxis VTE Prophylaxis Intervention: SCD's (Eliquis), other (Eliquis) Lines/Catheters IV C[facility]ter Type (from [facility]): PICC Line Central line still needed: Yes Urinary Cath still in place: No Assessment/Plan Chief Complaint/Hosp Course Assessment/Plan: 61 yo M with ?dementia who lives at a SNF admitted for fever and tachycardia. Lung imaging with infiltrates. Pt with sepsis from pneumonia #PNA: Improving given resolution of abnormal temperature and HR, convert from broad spectrum abx to CAP coverage with IV ceftriaxone and IV azithro (as unable to tolerate PO ) plan for 7 total days of abx (Pt admitted 8.7) -Continue to monitor for now -Follow-up sputum culture - strep urine Ag does not appear to have been done [id number] results of this #dysphagia: likely 2/2 underlying dementia. PO meds on hold. ST following -Again for now, recommending n.p.o. and consideration of PEG tube placement. Patient her conservator refuses, could try pured nectar thick diet, however high risk of aspiration event happening -See below for more detailed explanation of this #DVT prophylaxis: Again, patient states he believes he may have been diagnosed with blood clot, but is not aware what part of his body, a few months ago, and believes he started Eliquis at that time. -cautiously administer Eliquis p.o with applesauce/putting only as tolerated. #Behavioral disorder/dementia: Continue Seroquel at current dose. #COPD: No present issues, duo nebs as needed dispo planning; Pt with dysphagia, likely 2/2 his underlying dementia process which has caused him to have a public guardian for the past 8 years. Dw his conservator on 12.17, and again with the covering conservator on December 21. etio of his dementia and its progression or lack thereof is unknown. I spoke to them again today (12/22), they are still reviewing the risks and benefits and plan to contact me later today apparently about a possible decision regarding PEG placement. Based on dysphagia severity unlikely pt will shortly improve to point where he can tolerate PO. Speech therapist today recommended keeping the patient n.p.o. and recommended for PEG tube placement. If this is refused, patient is at high risk for aspiration, the benefits of placing PEG tube seem to outweigh the risks of trying to start a pured nectar thick diet given the fact the patient is presently being treated for pneumonia, and could suffer another aspiration pneumonia if we try to feed him through pure or nectar thick feeding. Problems: Subjective 24 Hr Interval Summary Free Text/Dictation Patient still yelling out occasionally. Per nursing staff is able to take his p.o. Seroquel. Still waiting to hear back officially from conservator regarding decision about PEG placement. Exam/Review of Systems Vital Signs Vitals Vital Signs Date Time Temp Pulse Resp B/P Pulse Ox O2 Delivery O2 Flow Rate FiO2 12/22/16 08:38 99.0 57 18 133/65 97 12/22/16 06:05 2.0 12/21/16 20:05 Nasal Cannula Intake and Output 12/21/16 12/21/16 12/22/16 15:00 23:00 07:00 Intake Total 275 ml 750 ml Balance 275 ml 750 ml Exam nad, sitting up in bed, yelling out occasionally no mrg lungs clear abd soft no lower extremity edema bilateral No focal deficits Results Result Diagram: 12/22/16 0435 12/22/16 0435 Results 24 hrs Laboratory Tests Test 12/22/16 04:35 White Blood Count 7.4 Red Blood Count 4.31 L Hemoglobin 13.7 L Hematocrit 39.9 L Mean Corpuscular Volume 92.6 Mean Corpuscular Hemoglobin 31.8 Mean Corpuscular Hemoglobin Concent 34.3 Red Cell Distribution Width 12.5 Platelet Count 253 # Mean Platelet Volume 10.2 Neutrophils % 56.3 Lymphocytes % 30.1 Monocytes % 11.1 H Eosinophils % 1.8 Basophils % 0.4 Nucleated Red Blood Cells % 0.0 Neutrophils # (Manual) 4.2 Lymphocytes # 2.2 Monocytes # 0.8 Eosinophils # 0.1 Basophils # 0.0 Nucleated Red Blood Cells # 0.0 Sodium Level 142 Potassium Level 3.3 L Chloride Level 104 Carbon Dioxide Level 22 Anion Gap 19 H Blood Urea Nitrogen 8 Creatinine 0.51 L Glucose Level 104 Calcium Level 8.4 Medications Medications Current Medications Ondansetron HCl (Zofran Inj) 4 mg Q6H PRN IV NAUSEA AND/OR VOMITING; Start 12/14 at 02:30 Acetaminophen (Tylenol Supp) 650 mg Q6H PRN [place] PAIN LEVEL 1-3 OR FEVER; Start 12/14/16 at 02:30 Heparin Sodium (Porcine) (Heparin (5000 Units/0.5 ml)) 5,000 unit Q8 SC Last administered on 12/14/16 06:01; Admin Dose 5,000 UNIT; Start 12/14/16 at 06:00; Status Future Hold Albuterol (Ventolin Hfa) 2 puff Q4H INH Last administered on 12/22/16 13:39; Admin Dose 2 PUFF; Start 12/14/16 at 03:00 Atorvastatin Calcium (Lipitor) 10 mg QHS PO Last administered on 12/21/16 20: 03; Admin Dose 10 MG; Start 12/14/16 at 21:00 Lorazepam (Ativan) 1 mg BID PRN PO ANXIETY Last administered on 12/22/16 10:45 ; Admin Dose 1 MG; Start 12/14/16 at 03:00 Quetiapine Fumarate (Seroquel) 100 mg HS PO Last administered on 12/21/16 20: 03; Admin Dose 100 MG; Start 12/14/16 at 21:00 Quetiapine Fumarate (Seroquel) 200 mg DAILY PO Last administered on 12/22/16 13:38; Admin Dose 200 MG; Start 12/14/16 at 09:00 Tiotropium [place] (Spiriva) 18 inh DAILY INH Last administered on 12/22/16 09 :05; Admin Dose 18 INH; Start 12/14/16 at 09:00 Tramadol HCl (Ultram) 50 mg Q6H PRN PO PAIN Last administered on 12/22/16 11: 35; Admin Dose 50 MG; Start 12/14/16 at 03:00 Apixaban (Eliquis) 5 mg BID PO Last administered on 12/22/16 09:04; Admin Dose 5 MG; Start 12/14/16 at 09:00 IV Flush (NS 10 ml) 10 ml PRN PRN IV FLUSH LINE; Start 12/17/16 at 18:00 Acetaminophen (Tylenol Tab) 650 mg Q6H PRN PO PAIN AND OR ELEVATED TEMP Last administered on 12/19/16 08:37; Admin Dose 650 MG; Start 12/18/16 at 14:30 Morphine Sulfate (morphine) 2 mg Q4H PRN IV PAIN Last administered on 13:24; Admin Dose 2 MG; Start 12/19/16 at 20:00 Mupirocin 1 applic 1 applic BID TOP Last administered on 12/22/16 09:07; Admin Dose 1 APPLIC; Start 12/21/16 at 21:00 Dextrose/Sodium Chloride (D5-1/2ns) 1,000 ml @ 75 mls/hr [id number] IV Last administered on 12/22/16 04:50; Admin Dose 75 MLS/HR; Start 12/21/16 at 15:30 EVELIA JUAN Dec 22, 2016 14:50
[2016-12-22 15:00] VITALS: BP 105/64; RESP 19
[2016-12-22] MEDS: LORAZEPAM 2 MG INJ IV PRN (15:32)
[2016-12-22 21:10] VITALS: BP 139/76; RESP 18
[2016-12-22] MEDS: ATORVASTATIN 10 MG TAB PO SCH (22:24)
[2016-12-23] MEDS: ALBUTEROL 18 GM INHALER INH SCH ×7 (00:08→23:01)
[2016-12-23 02:25] VITALS: BP 120/68; RESP 18
[2016-12-23 05:31] LABS: BASOPHILS % 0.6 % (0.0-2.0); EOSINOPHILS # 0.2 10^3/ul (0.0-0.5); EOSINOPHILS % 3.2 % (0.0-7.0); HEMATOCRIT 37.5 % (42.0-52.0); HEMOGLOBIN 12.8 g/dl (14.0-18.0); LYMPHOCYTES # 2.3 10^3/ul (0.8-2.9); LYMPHOCYTES % 37.6 % (15.0-51.0); MEAN CORPUSCULAR HEMOGLOBIN 31.9 pg (29.0-33.0); MEAN CORPUSCULAR HGB CONC 34.1 g/dl (32.0-37.0); MEAN CORPUSCULAR VOLUME 93.5 fl (82.0-101.0); MEAN PLATELET VOLUME 10.3 fl (7.4-10.4); MONOCYTE # 0.7 10^3/ul (0.3-0.9); MONOCYTES % 11.2 % (0.0-11.0); NEUTROPHILS % 47.1 % (39.0-77.0); PLATELET COUNT 242 10^3/UL (140-415); RED BLOOD COUNT 4.01 10^6/ul (4.70-6.10); WHITE BLOOD COUNT 6.2 10^3/ul (4.8-10.8)
[2016-12-23 06:33] LABS: CALCIUM 8.3 mg/dl (8.4-10.2); CREATININE 0.59 mg/dl (0.61-1.24); POTASSIUM 3.2 mmol/L (3.5-5.1)
[2016-12-23] MEDS: LEVOTHYROXINE 50 MCG TAB PO SCH (06:36)
[2016-12-23 07:28] VITALS: BP 144/70; RESP 20
[2016-12-23] MEDS: DEXTROSE 5%-0.45% NACL 1,000 ML IV SCH ×3 (09:00→23:01)
[2016-12-23] MEDS: QUETIAPINE 100 MG TAB PO SCH ×2 (10:55→20:45)
[2016-12-23] MEDS: APIXABAN 5 MG TABLET PO SCH ×2 (10:55→20:45)
[2016-12-23] MEDS: TIOTROPIUM 18 MCG CAPSULE INHA DEV INH SCH (10:57)
[2016-12-23] MEDS: MUPIROCIN 2% 22 GM OINT TOP SCH ×2 (10:58→20:45)
[2016-12-23] MEDS: morphine 2 MG INJ IV PRN ×2 (13:44→23:01)
[2016-12-23] MEDS: LORAZEPAM 2 MG INJ IV PRN ×2 (14:44→21:33)
--- NOTE | 2016-12-23 15:31 | PN ---
Date/Time of Note Date/Time of Note DATE: 12/23/16 TIME: 15:30 Assessment/Plan VTE Prophylaxis VTE Prophylaxis Intervention: SCD's, other (Eliquis) Lines/Catheters IV Catheter Type (from [facility]rs): PICC Line Central line still needed: Yes Urinary Cath still in place: No Assessment/Plan Chief Complaint/Hosp Course Assessment/Plan: 61 yo M with ?dementia who lives at a SNF admitted for fever and tachycardia. Lung imaging with infiltrates. Pt with sepsis from pneumonia #PNA: Improving given resolution of abnormal temperature and HR, convert from broad spectrum abx to CAP coverage with IV ceftriaxone and IV azithro (as unable to tolerate PO ) plan for 7 total days of abx (Pt admitted 8.7) -Continue to monitor for now -Follow-up sputum culture - strep urine Ag does not appear to have been done [id number] results of this #dysphagia: likely 2/2 underlying dementia. PO meds on hold. ST following -Again for now, recommending n.p.o. and consideration of PEG tube placement. Last week apparently conservator refused, could try pured nectar thick diet, however per speech therapy eval a few days ago patient is high risk of aspiration event happening -See below for more detailed explanation of this -We will also go ahead and start TPN today and get dietary consult #DVT prophylaxis: Again, patient states he believes he may have been diagnosed with blood clot, but is not aware what part of his body, a few months ago, and believes he started Eliquis at that time. -cautiously administer Eliquis p.o with applesauce/putting only as tolerated. #Behavioral disorder/dementia: Continue Seroquel at current dose. #COPD: No present issues, duo nebs as needed dispo planning; Pt with dysphagia, likely 2/2 his underlying dementia process which has caused him to have a public guardian for the past 8 years. Dw his conservator on 12.17, and again with the covering conservator on December 21. etio of his dementia and its progression or lack thereof is unknown. I spoke to them again today (12/22), they are still reviewing the risks and benefits and plan to contact me later today apparently about a possible decision regarding PEG placement. Based on dysphagia severity unlikely pt will shortly improve to point where he can tolerate PO. Speech therapist 3 days ago recommended keeping the patient n.p.o. and recommended for PEG tube placement. If this is refused, patient is at high risk for aspiration, the benefits of placing PEG tube seem to outweigh the risks of trying to start a pured nectar thick diet given the fact the patient is presently being treated for pneumonia, and could suffer another aspiration pneumonia if we try to feed him through pure or nectar thick feeding. Problems: Subjective 24 Hr Interval Summary Free Text/Dictation Patient still agitated about why he cannot eat food, despite again explanation to him about high aspiration risk. Exam/Review of Systems Vital Signs Vitals Vital Signs Date Time Temp Pulse Resp B/P Pulse Ox O2 Delivery O2 Flow Rate FiO2 12/23/16 09:27 2.0 12/23/16 07:28 97.4 51 20 144/70 100 12/22/16 20:00 Nasal Cannula Intake and Output 12/22/16 12/22/16 12/23/16 15:00 23:00 07:00 Intake Total 900 ml 900 ml Balance 900 ml 900 ml Exam nad, sitting up in bed, yelling out occasionally no mrg lungs clear abd soft no lower extremity edema bilateral No focal deficits Results Result Diagram: 12/23/16 0428 12/23/16 0428 Results 24 hrs Laboratory Tests Test 12/23/16 04:28 White Blood Count 6.2 Red Blood Count 4.01 L Hemoglobin 12.8 L Hematocrit 37.5 L Mean Corpuscular Volume 93.5 Mean Corpuscular Hemoglobin 31.9 Mean Corpuscular Hemoglobin Concent 34.1 Red Cell Distribution Width 13.0 Platelet Count 242 Mean Platelet Volume 10.3 Neutrophils % 47.1 Lymphocytes % 37.6 Monocytes % 11.2 H Eosinophils % 3.2 Basophils % 0.6 Nucleated Red Blood Cells % 0.0 Neutrophils # (Manual) 2.9 Lymphocytes # 2.3 Monocytes # 0.7 Eosinophils # 0.2 Basophils # 0.0 Nucleated Red Blood Cells # 0.0 Sodium Level 144 Potassium Level 3.2 L Chloride Level 107 Carbon Dioxide Level 26 Anion Gap 14 Blood Urea Nitrogen 7 Creatinine 0.59 L Glucose Level 100 Calcium Level 8.3 L Medications Medications Current Medications Ondansetron HCl (Zofran Inj) 4 mg Q6H PRN IV NAUSEA AND/OR VOMITING; Start 12/14 at 02:30 Acetaminophen (Tylenol Supp) 650 mg Q6H PRN [place] PAIN LEVEL 1-3 OR FEVER; Start 12/14/16 at 02:30 Heparin Sodium (Porcine) (Heparin (5000 Units/0.5 ml)) 5,000 unit Q8 SC Last administered on 12/14/16 06:01; Admin Dose 5,000 UNIT; Start 12/14/16 at 06:00; Status Future Hold Albuterol (Ventolin Hfa) 2 puff Q4H INH Last administered on 12/23/16 14:44; Admin Dose 2 PUFF; Start 12/14/16 at 03:00 Atorvastatin Calcium (Lipitor) 10 mg QHS PO Last administered on 12/22/16 22: 24; Admin Dose 10 MG; Start 12/14/16 at 21:00 Quetiapine Fumarate (Seroquel) 100 mg HS PO Last administered on 12/22/16 22: 24; Admin Dose 100 MG; Start 12/14/16 at 21:00 Quetiapine Fumarate (Seroquel) 200 mg DAILY PO Last administered on 12/23/16 10:55; Admin Dose 200 MG; Start 12/14/16 at 09:00 Tiotropium [place] (Spiriva) 18 inh DAILY INH Last administered on 12/23/16 10 :57; Admin Dose 1 INH; Start 12/14/16 at 09:00 Tramadol HCl (Ultram) 50 mg Q6H PRN PO PAIN Last administered on 12/22/16 11: 35; Admin Dose 50 MG; Start 12/14/16 at 03:00 Apixaban (Eliquis) 5 mg BID PO Last administered on 12/23/16 10:55; Admin Dose 5 MG; Start 12/14/16 at 09:00 IV Flush (NS 10 ml) 10 ml PRN PRN IV FLUSH LINE; Start 12/17/16 at 18:00 Acetaminophen (Tylenol Tab) 650 mg Q6H PRN PO PAIN AND OR ELEVATED TEMP Last administered on 12/19/16 08:37; Admin Dose 650 MG; Start 12/18/16 at 14:30 Morphine Sulfate (morphine) 2 mg Q4H PRN IV PAIN Last administered on 13:44; Admin Dose 2 MG; Start 12/19/16 at 20:00 Mupirocin 1 applic 1 applic BID TOP Last administered on 12/23/16 10:58; Admin Dose 1 APPLIC; Start 12/21/16 at 21:00 Dextrose/Sodium Chloride (D5-1/2ns) 1,000 ml @ 75 mls/hr [id number] IV Last administered on 12/23/16 09:00; Admin Dose 75 MLS/HR; Start 12/21/16 at 15:30 Lorazepam (Ativan) 1 mg Q4H PRN IV AGITATION/ANXIETY Last administered on 14:44; Admin Dose 1 MG; Start 12/22/16 at 15:00 EVELIA JUAN Dec 23, 2016 15:31
[2016-12-23 15:39] VITALS: BP 107/62; RESP 20
[2016-12-23] MEDS ORDERED: POTASSIUM CHLORIDE (SR) 20 MEQ TAB PO STA (19:56)
[2016-12-23 20:10] VITALS: BP 103/56; RESP 20
[2016-12-23] MEDS: ATORVASTATIN 10 MG TAB PO SCH (20:45)
[2016-12-24] MEDS: LORAZEPAM 2 MG INJ IV PRN (00:40)
[2016-12-24 02:00] VITALS: BP 115/65; RESP 19
[2016-12-24] MEDS: ALBUTEROL 18 GM INHALER INH SCH ×6 (02:42→22:07)
[2016-12-24] MEDS ORDERED: HALOPERIDOL 5 MG INJ IM ONE (03:00)
[2016-12-24] MEDS ORDERED: LORAZEPAM 2 MG INJ IV ONE (03:00)
[2016-12-24] MEDS ORDERED: DIPHENHYDRAMINE 50 MG INJ IV ONE (03:00)
[2016-12-24] MEDS: morphine 2 MG INJ IV PRN ×3 (04:01→22:07)
[2016-12-24 05:26] LABS: BASOPHILS % 0.5 % (0.0-2.0); EOSINOPHILS # 0.2 10^3/ul (0.0-0.5); EOSINOPHILS % 2.6 % (0.0-7.0); HEMATOCRIT 36.8 % (42.0-52.0); HEMOGLOBIN 12.6 g/dl (14.0-18.0); LYMPHOCYTES # 2.4 10^3/ul (0.8-2.9); LYMPHOCYTES % 41.8 % (15.0-51.0); MEAN CORPUSCULAR HEMOGLOBIN 32.1 pg (29.0-33.0); MEAN CORPUSCULAR HGB CONC 34.2 g/dl (32.0-37.0); MEAN CORPUSCULAR VOLUME 93.6 fl (82.0-101.0); MEAN PLATELET VOLUME 10.3 fl (7.4-10.4); MONOCYTE # 0.6 10^3/ul (0.3-0.9); MONOCYTES % 9.6 % (0.0-11.0); NEUTROPHILS % 45.3 % (39.0-77.0); PLATELET COUNT 250 10^3/UL (140-415); RED BLOOD COUNT 3.93 10^6/ul (4.70-6.10); RED CELL DISTRIBUTION WIDTH 13.2 % (11.5-14.5); WHITE BLOOD COUNT 5.8 10^3/ul (4.8-10.8)
[2016-12-24 05:49] LABS: CALCIUM 8.6 mg/dl (8.4-10.2); CREATININE 0.6 mg/dl (0.61-1.24); POTASSIUM 3.5 mmol/L (3.5-5.1)
[2016-12-24] MEDS: LEVOTHYROXINE 50 MCG TAB PO SCH (06:02)
[2016-12-24] MEDS: QUETIAPINE 100 MG TAB PO SCH ×3 (09:00→20:29)
[2016-12-24] MEDS: APIXABAN 5 MG TABLET PO SCH ×3 (09:00→20:28)
[2016-12-24] MEDS: TIOTROPIUM 18 MCG CAPSULE INHA DEV INH SCH (09:00)
[2016-12-24 09:45] VITALS: BP 116/56; RESP 20
[2016-12-24] MEDS: DEXTROSE 5%-0.45% NACL 1,000 ML IV SCH (13:33)
[2016-12-24] MEDS: MUPIROCIN 2% 22 GM OINT TOP SCH ×2 (13:34→20:28)
--- NOTE | 2016-12-24 13:58 | PN ---
Date/Time of Note Date/Time of Note DATE: 12/24/16 TIME: 13:50 Assessment/Plan VTE Prophylaxis VTE Prophylaxis Intervention: SCD's, other (Eliquis) Lines/Catheters IV [facility] Type (from [facility]): PICC Line Central line still needed: Yes Urinary Cath still in place: No Assessment/Plan Chief Complaint/Hosp Course Assessment/Plan: 61 yo M with ?dementia who lives at a SNF admitted for fever and tachycardia. Lung imaging with infiltrates. Pt with sepsis from pneumonia #PNA: Improving-resolved -Continue to monitor for now -Follow-up sputum culture - strep urine Ag does not appear to have been done [id number] results of this #dysphagia: likely 2/2 underlying dementia. PO meds on hold. ST following -Again for now, recommending n.p.o. and consideration of PEG tube placement. Last week apparently conservator refused, could try pured nectar thick diet, however per speech therapy eval a few days ago patient is high risk of aspiration event happening -See below for more detailed explanation of this -Nutrition team not recommending TPN at this time, will instead try for NG tube placement and tube feeds this way today #DVT prophylaxis: Again, patient states he believes he may have been diagnosed with blood clot, but is not aware what part of his body, a few months ago, and believes he started Eliquis at that time. -cautiously administer Eliquis p.o with applesauce/putting only as tolerated. #Behavioral disorder/dementia: Continue Seroquel at current dose. #COPD: No present issues, duo nebs as needed dispo planning; Pt with dysphagia, likely 2/2 his underlying dementia process which has caused him to have a public guardian for the past 8 years. Dw his conservator on 12.17, and again with the covering conservator on December 21. etio of his dementia and its progression or lack thereof is unknown. I spoke to them again today (12/22), they are still reviewing the risks and benefits and plan to contact me later today apparently about a possible decision regarding PEG placement. Based on dysphagia severity unlikely pt will shortly improve to point where he can tolerate PO. Speech therapist 4 days ago recommended keeping the patient n.p.o. and recommended for PEG tube placement. If this is refused, patient is at high risk for aspiration, the benefits of placing PEG tube seem to outweigh the risks of trying to start a pured nectar thick diet given the fact the patient is presently being treated for pneumonia, and could suffer another aspiration pneumonia if we try to feed him through pure or nectar thick feeding. Covering guardian has signed for consent for this, patient did refuse this yesterday. Again we will try NG tube placement today and tube feeds, and reassess. Problems: Subjective 24 Hr Interval Summary Free Text/Dictation Patient yelling last night, sleeping presently. On started on TPN yesterday. Awaiting possible NG tube placement. Exam/Review of Systems Vital Signs Vitals Vital Signs Date Time Temp Pulse Resp B/P Pulse Ox O2 Delivery O2 Flow Rate FiO2 12/24/16 13:37 Nasal Cannula 2.0 12/24/16 09:45 98.3 57 20 116/56 100 Intake and Output 12/23/16 12/23/16 12/24/16 15:00 23:00 07:00 Intake Total 1000 ml 450 ml Balance 1000 ml 450 ml Exam nad, presently sleeping no mrg lungs clear abd soft no lower extremity edema bilateral No focal deficits Results Result Diagram: 12/24/16 0425 12/24/16 0425 Results 24 hrs Laboratory Tests Test 12/24/16 04:25 White Blood Count 5.8 Red Blood Count 3.93 L Hemoglobin 12.6 L Hematocrit 36.8 L Mean Corpuscular Volume 93.6 Mean Corpuscular Hemoglobin 32.1 Mean Corpuscular Hemoglobin Concent 34.2 Red Cell Distribution Width 13.2 Platelet Count 250 Mean Platelet Volume 10.3 Neutrophils % 45.3 Lymphocytes % 41.8 Monocytes % 9.6 Eosinophils % 2.6 Basophils % 0.5 Nucleated Red Blood Cells % 0.0 Neutrophils # (Manual) 3 Lymphocytes # 2.4 Monocytes # 0.6 Eosinophils # 0.2 Basophils # 0.0 Nucleated Red Blood Cells # 0.0 Sodium Level 142 Potassium Level 3.5 Chloride Level 109 Carbon Dioxide Level 25 Anion Gap 12 Blood Urea Nitrogen 7 Creatinine 0.60 L Glucose Level 91 Calcium Level 8.6 Medications Medications Current Medications Ondansetron HCl (Zofran Inj) 4 mg Q6H PRN IV NAUSEA AND/OR VOMITING; Start 12/14 at 02:30 Acetaminophen (Tylenol Supp) 650 mg Q6H PRN [place] PAIN LEVEL 1-3 OR FEVER; Start 12/14/16 at 02:30 Heparin Sodium (Porcine) (Heparin (5000 Units/0.5 ml)) 5,000 unit Q8 SC Last administered on 12/14/16 06:01; Admin Dose 5,000 UNIT; Start 12/14/16 at 06:00; Status Future Hold Albuterol (Ventolin Hfa) 2 puff Q4H INH Last administered on 12/24/16 06:02; Admin Dose 2 PUFF; Start 12/14/16 at 03:00 Atorvastatin Calcium (Lipitor) 10 mg QHS PO Last administered on 12/23/16 20: 45; Admin Dose 10 MG; Start 12/14/16 at 21:00 Quetiapine Fumarate (Seroquel) 100 mg HS PO Last administered on 12/23/16 20: 45; Admin Dose 100 MG; Start 12/14/16 at 21:00 Quetiapine Fumarate (Seroquel) 200 mg DAILY PO Last administered on 12/23/16 10:55; Admin Dose 200 MG; Start 12/14/16 at 09:00 Tiotropium [place] (Spiriva) 18 inh DAILY INH Last administered on 12/23/16 10 :57; Admin Dose 1 INH; Start 12/14/16 at 09:00 Tramadol HCl (Ultram) 50 mg Q6H PRN PO PAIN Last administered on 12/22/16 11: 35; Admin Dose 50 MG; Start 12/14/16 at 03:00 Apixaban (Eliquis) 5 mg BID PO Last administered on 12/23/16 20:45; Admin Dose 5 MG; Start 12/14/16 at 09:00 IV Flush (NS 10 ml) 10 ml PRN PRN IV FLUSH LINE; Start 12/17/16 at 18:00 Acetaminophen (Tylenol Tab) 650 mg Q6H PRN PO PAIN AND OR ELEVATED TEMP Last administered on 12/19/16 08:37; Admin Dose 650 MG; Start 12/18/16 at 14:30 Morphine Sulfate (morphine) 2 mg Q4H PRN IV PAIN Last administered on 04:01; Admin Dose 2 MG; Start 12/19/16 at 20:00 Mupirocin 1 applic 1 applic BID TOP Last administered on 12/24/16 13:34; Admin Dose 1 APPLIC; Start 12/21/16 at 21:00 Dextrose/Sodium Chloride (D5-1/2ns) 1,000 ml @ 75 mls/hr [id number] IV Last administered on 12/24/16 13:33; Admin Dose 75 MLS/HR; Start 12/21/16 at 15:30 Lorazepam (Ativan) 1 mg Q4H PRN IV AGITATION/ANXIETY Last administered on 00:40; Admin Dose 1 MG; Start 12/22/16 at 15:00 EVELIA JUAN Dec 24, 2016 13:57
[2016-12-24 16:32] VITALS: BP 124/68; RESP 20
[2016-12-24] MEDS: ATORVASTATIN 10 MG TAB PO SCH (20:28)
[2016-12-24 20:30] VITALS: BP 107/76; RESP 18
[2016-12-25 02:23] VITALS: BP 126/66; RESP 18
[2016-12-25] MEDS: morphine 2 MG INJ IV PRN ×4 (02:58→20:36)
[2016-12-25] MEDS: ALBUTEROL 18 GM INHALER INH SCH ×5 (02:58→18:09)
[2016-12-25] MEDS: DEXTROSE 5%-0.45% NACL 1,000 ML IV SCH (02:59)
[2016-12-25] MEDS: LEVOTHYROXINE 50 MCG TAB PO SCH (06:23)
[2016-12-25 06:38] LABS: BASOPHIL # 0.1 10^3/ul (0.0-0.1); BASOPHILS % 0.9 % (0.0-2.0); EOSINOPHILS # 0.2 10^3/ul (0.0-0.5); EOSINOPHILS % 4.2 % (0.0-7.0); HEMATOCRIT 36.3 % (42.0-52.0); LYMPHOCYTES # 2.1 10^3/ul (0.8-2.9); LYMPHOCYTES % 38.9 % (15.0-51.0); MEAN CORPUSCULAR HEMOGLOBIN 30.8 pg (29.0-33.0); MEAN CORPUSCULAR HGB CONC 33.1 g/dl (32.0-37.0); MEAN CORPUSCULAR VOLUME 93.1 fl (82.0-101.0); MONOCYTE # 0.5 10^3/ul (0.3-0.9); NEUTROPHILS % 45.8 % (39.0-77.0); PLATELET COUNT 215 10^3/UL (140-415); RED CELL DISTRIBUTION WIDTH 13.2 % (11.5-14.5); WHITE BLOOD COUNT 5.4 10^3/ul (4.8-10.8)
[2016-12-25 07:00] LABS: CALCIUM 8.6 mg/dl (8.4-10.2); CREATININE 0.58 mg/dl (0.61-1.24); POTASSIUM 3.1 mmol/L (3.5-5.1)
[2016-12-25 07:58] VITALS: BP 147/67; RESP 16
[2016-12-25] MEDS: APIXABAN 5 MG TABLET PO SCH ×2 (08:50→20:36)
[2016-12-25] MEDS: TIOTROPIUM 18 MCG CAPSULE INHA DEV INH SCH (08:50)
[2016-12-25] MEDS: MUPIROCIN 2% 22 GM OINT TOP SCH ×2 (08:51→20:37)
[2016-12-25] MEDS: QUETIAPINE 100 MG TAB PO SCH ×2 (08:51→20:37)
[2016-12-25 10:57] LABS: MAGNESIUM 1.7 mg/dl (1.7-2.5); PHOSPHORUS 3.3 mg/dl (2.5-4.9)
[2016-12-25] MEDS: POTASSIUM CHLORIDE 250 ML IVPB SCH ×2 (12:40→16:22)
--- NOTE | 2016-12-25 12:55 | PN ---
Date/Time of Note Date/Time of Note DATE: 12/25/16 TIME: 12:52 Assessment/Plan VTE Prophylaxis VTE Prophylaxis Intervention: SCD's, other (Eliquis) Lines/Catheters IV C[facility] Type (from [facility] PICC Line Central line still needed: Yes Urinary Cath still in place: No Assessment/Plan Chief Complaint/Hosp Course Assessment/Plan: 61 yo M with ?dementia who lives at a SNF admitted for fever and tachycardia. Lung imaging with infiltrates. Pt with sepsis from pneumonia #PNA: Improving-resolved -Continue to monitor for now -Follow-up sputum culture - strep urine Ag does not appear to have been done [id number] results of this #dysphagia: likely 2/2 underlying dementia. PO meds on hold. ST following -Again for now, recommending n.p.o. and consideration of PEG tube placement. Last week apparently conservator refused, could try pured nectar thick diet, however per speech therapy eval for the last few days, patient is high risk of aspiration event happening -See below for more detailed explanation of this -Patient refused NG tube yesterday, will start TPN at low rate today to avoid any potential refeeding syndrome #DVT prophylaxis: Again, patient states he believes he may have been diagnosed with blood clot, but is not aware what part of his body, a few months ago, and believes he started Eliquis at that time. -cautiously administer Eliquis p.o with applesauce/putting only as tolerated. #Behavioral disorder/dementia: Continue Seroquel at current dose. #COPD: No present issues, duo nebs as needed dispo planning; Pt with dysphagia, likely 2/2 his underlying dementia process which has caused him to have a public guardian for the past 8 years. Dw his conservator on 12.17, and again with the covering conservator on December 21. etio of his dementia and its progression or lack thereof is unknown. I spoke to them again today (12/22), they are still reviewing the risks and benefits and plan to contact me later today apparently about a possible decision regarding PEG placement. Based on dysphagia severity unlikely pt will shortly improve to point where he can tolerate PO. Speech therapist 5 days ago recommended keeping the patient n.p.o. and recommended for PEG tube placement. If this is refused, patient is at high risk for aspiration, the benefits of placing PEG tube seem to outweigh the risks of trying to start a pured nectar thick diet given the fact the patient is presently being treated for pneumonia, and could suffer another aspiration pneumonia if we try to feed him through pure or nectar thick feeding. Covering guardian has signed for consent for this, but patient did refuse PEG tube placement 2 days ago. He also refused NG tube placement yesterday. We will thus start low rate of TPN today and monitor for any signs of refeeding syndrome. Problems: Subjective 24 Hr Interval Summary Free Text/Dictation Patient seen by speech and dietary teams this morning. Refused NG tube placement yesterday. Exam/Review of Systems Vital Signs Vitals Vital Signs Date Time Temp Pulse Resp B/P Pulse Ox O2 Delivery O2 Flow Rate FiO2 12/25/16 10:35 Nasal Cannula 2.0 12/25/16 07:58 97.9 60 16 147/67 100 Intake and Output 12/24/16 12/24/16 12/25/16 15:00 23:00 07:00 Intake Total 600 ml 300 ml 850 ml Balance 600 ml 300 ml 850 ml Exam nad, presently sleeping no mrg lungs clear abd soft no lower extremity edema bilateral No focal deficits Results Result Diagram: 12/25/16 0445 12/25/16 0445 Results 24 hrs Laboratory Tests Test 12/25/16 04:45 White Blood Count 5.4 Red Blood Count 3.90 L Hemoglobin 12.0 L Hematocrit 36.3 L Mean Corpuscular Volume 93.1 Mean Corpuscular Hemoglobin 30.8 Mean Corpuscular Hemoglobin Concent 33.1 Red Cell Distribution Width 13.2 Platelet Count 215 Mean Platelet Volume 11.0 H Neutrophils % 45.8 Lymphocytes % 38.9 Monocytes % 10.0 Eosinophils % 4.2 Basophils % 0.9 Nucleated Red Blood Cells % 0.0 Neutrophils # (Manual) 2 Lymphocytes # 2.1 Monocytes # 0.5 Eosinophils # 0.2 Basophils # 0.1 Nucleated Red Blood Cells # 0.0 Sodium Level 139 Potassium Level 3.1 L Chloride Level 106 Carbon Dioxide Level 26 Anion Gap 10 Blood Urea Nitrogen 7 Creatinine 0.58 L Glucose Level 89 Calcium Level 8.6 Phosphorus Level 3.3 Magnesium Level 1.7 Medications Medications Current Medications Ondansetron HCl (Zofran Inj) 4 mg Q6H PRN IV NAUSEA AND/OR VOMITING; Start 12/14 at 02:30 Acetaminophen (Tylenol Supp) 650 mg Q6H PRN [place] PAIN LEVEL 1-3 OR FEVER; Start 12/14/16 at 02:30 Albuterol (Ventolin Hfa) 2 puff Q4H INH Last administered on 12/25/16 12:41; Admin Dose 2 PUFF; Start 12/14/16 at 03:00 Atorvastatin Calcium (Lipitor) 10 mg QHS PO Last administered on 12/24/16 20: 28; Admin Dose 10 MG; Start 12/14/16 at 21:00 Quetiapine Fumarate (Seroquel) 100 mg HS PO Last administered on 12/24/16 20: 29; Admin Dose 100 MG; Start 12/14/16 at 21:00 Quetiapine Fumarate (Seroquel) 200 mg DAILY PO Last administered on 12/25/16 08:51; Admin Dose 200 MG; Start 12/14/16 at 09:00 Tiotropium [place] (Spiriva) 18 inh DAILY INH Last administered on 12/25/16 08 :50; Admin Dose 18 INH; Start 12/14/16 at 09:00 Tramadol HCl (Ultram) 50 mg Q6H PRN PO PAIN Last administered on 12/22/16 11: 35; Admin Dose 50 MG; Start 12/14/16 at 03:00 Apixaban (Eliquis) 5 mg BID PO Last administered on 12/25/16 08:50; Admin Dose 5 MG; Start 12/14/16 at 09:00 IV Flush (NS 10 ml) 10 ml PRN PRN IV FLUSH LINE; Start 12/17/16 at 18:00 Acetaminophen (Tylenol Tab) 650 mg Q6H PRN PO PAIN AND OR ELEVATED TEMP Last administered on 12/19/16 08:37; Admin Dose 650 MG; Start 12/18/16 at 14:30 Morphine Sulfate (morphine) 2 mg Q4H PRN IV PAIN Last administered on 08:22; Admin Dose 2 MG; Start 12/19/16 at 20:00 Mupirocin 1 applic 1 applic BID TOP Last administered on 12/25/16 08:51; Admin Dose 1 APPLIC; Start 12/21/16 at 21:00 Dextrose/Sodium Chloride (D5-1/2ns) 1,000 ml @ 75 mls/hr [id number] IV Last administered on 12/25/16 02:59; Admin Dose 75 MLS/HR; Start 12/21/16 at 15:30; Stop 12/25/16 at 16:00 Lorazepam 1 mg 1 mg Q4H PRN IV AGITATION/ANXIETY Last administered on 00:40; Admin Dose 1 MG; Start 12/22/16 at 15:00 Potassium Chloride 250 ml @ 62.5 mls/hr Q4H IVPB Last administered on 12:40; Admin Dose 62.5 MLS/HR; Start 12/25/16 at 11:00; Stop 12/25/16 at 18 :59 Total Parenteral Nutrition (Tpn) 1,000 ml @ 40 mls/hr Q24H IV ; Start 12/25/16 at 16:00 EVELIA JUAN Dec 25, 2016 12:54
[2016-12-25 14:10] LABS: ALBUMIN 3.2 g/dl (3.3-4.9); BILIRUBIN,INDIRECT 0.2 mg/dl (0-1.1); BILIRUBIN,TOTAL 0.2 mg/dl (0.2-1.3); TOTAL PROTEIN 6.1 g/dl (6.1-8.1)
[2016-12-25 14:26] LABS: PREALBUMIN 14.7 mg/dl (17.6-36.0)
[2016-12-25 14:40] VITALS: BP 108/63; RESP 17
[2016-12-25] MEDS: TPN 1,000 ML IV SCH (18:08)
[2016-12-25 19:08] VITALS: BP 124/72; RESP 18
[2016-12-25] MEDS: ATORVASTATIN 10 MG TAB PO SCH (20:37)
[2016-12-26] MEDS: morphine 2 MG INJ IV PRN ×5 (00:44→22:23)
[2016-12-26] MEDS: ALBUTEROL 18 GM INHALER INH SCH ×7 (00:45→22:22)
[2016-12-26 02:00] VITALS: BP 109/52; RESP 19
[2016-12-26] MEDS: LORAZEPAM 2 MG INJ IV PRN (02:35)
[2016-12-26 05:51] LABS: BASOPHIL # 0.1 10^3/ul (0.0-0.1); BASOPHILS % 0.8 % (0.0-2.0); EOSINOPHILS # 0.2 10^3/ul (0.0-0.5); EOSINOPHILS % 3.1 % (0.0-7.0); HEMATOCRIT 37.9 % (42.0-52.0); HEMOGLOBIN 12.8 g/dl (14.0-18.0); LYMPHOCYTES # 2.5 10^3/ul (0.8-2.9); LYMPHOCYTES % 38.6 % (15.0-51.0); MEAN CORPUSCULAR HEMOGLOBIN 31.6 pg (29.0-33.0); MEAN CORPUSCULAR HGB CONC 33.8 g/dl (32.0-37.0); MEAN CORPUSCULAR VOLUME 93.6 fl (82.0-101.0); MEAN PLATELET VOLUME 10.7 fl (7.4-10.4); MONOCYTE # 0.6 10^3/ul (0.3-0.9); MONOCYTES % 8.9 % (0.0-11.0); NEUTROPHILS % 48.4 % (39.0-77.0); PLATELET COUNT 248 10^3/UL (140-415); RED BLOOD COUNT 4.05 10^6/ul (4.70-6.10); RED CELL DISTRIBUTION WIDTH 12.9 % (11.5-14.5); WHITE BLOOD COUNT 6.4 10^3/ul (4.8-10.8)
[2016-12-26 06:19] LABS: CALCIUM 8.7 mg/dl (8.4-10.2); CREATININE 0.6 mg/dl (0.61-1.24); POTASSIUM 3.8 mmol/L (3.5-5.1)
[2016-12-26] MEDS: LEVOTHYROXINE 50 MCG TAB PO SCH (06:39)
[2016-12-26 08:00] VITALS: BP 131/70; RESP 18
[2016-12-26] MEDS: TIOTROPIUM 18 MCG CAPSULE INHA DEV INH SCH (08:50)
[2016-12-26] MEDS: APIXABAN 5 MG TABLET PO SCH ×2 (08:50→22:21)
[2016-12-26] MEDS: QUETIAPINE 100 MG TAB PO SCH ×2 (08:50→22:20)
[2016-12-26] MEDS: MUPIROCIN 2% 22 GM OINT TOP SCH ×2 (08:50→22:21)
[2016-12-26] MEDS: ACCU-CHEK XX SCH ×3 (12:11→23:45)
--- NOTE | 2016-12-26 13:08 | PN ---
Date/Time of Note Date/Time of Note DATE: 12/26/16 TIME: 13:03 Assessment/Plan VTE Prophylaxis VTE Prophylaxis Intervention: SCD's, other (Eliquis) Lines/Catheters IV Catheter Type (from Nrs): PICC Line Central line still needed: Yes Urinary Cath still in place: No Assessment/Plan Chief Complaint/Hosp Course Assessment/Plan: 61 yo M with ?dementia who lives at a SNF admitted for fever and tachycardia. Lung imaging with infiltrates. Pt with sepsis from pneumonia #PNA: resolved now -Continue to monitor for now -Follow-up sputum culture - strep urine Ag does not appear to have been done [id number] results of this #dysphagia: likely 2/2 underlying dementia. PO meds on hold. ST . Started on TPN low rate yesterday -Again for now, recommending n.p.o. and consideration of PEG tube placement. Last week apparently conservator refused, each therapy indicated could try pur ed nectar thick diet, however patient is high risk of aspiration event happening -See below for more detailed explanation of this -Continue TPN at low rate for now until final decision about PEG placement can be made #DVT prophylaxis: Again, patient states he believes he may have been diagnosed with blood clot a few months ago, but is not aware what part of his body, and believes he started Eliquis at that time. -cautiously administer Eliquis p.o with applesauce/pudding only as tolerated. #Behavioral disorder/dementia: Still with some agitation at night, will increase nighttime Seroquel dose #COPD: No present issues, duo nebs as needed dispo planning; Pt with dysphagia, likely 2/2 his underlying dementia process which has caused him to have a public guardian for the past 8 years. Dw his conservator on 12.17, and again with the covering conservator on December 21. etio of his dementia and its progression or lack thereof is unknown. Spoke with covering conservator on 12/22 regarding a possible decision on PEG placement,( Based on dysphagia severity unlikely pt will shortly improve to point where he can tolerate PO). Speech therapist 6 days ago recommended keeping the patient n.p.o. and recommended for PEG tube placement. If this is refused, patient is at high risk for aspiration, the benefits of placing PEG tube seem to outweigh the risks of trying to start a pured nectar thick diet given the fact the patient is presently being treated for pneumonia, and could suffer another aspiration pneumonia if we try to feed him through pure or nectar thick feeding. Covering guardian has signed for consent for this, but patient did refuse PEG tube placement 3 days ago. He also refused NG tube placement 2 days ago. Started on TPN yesterday and will continue to monitor for any signs of refeeding syndrome. Problems: Subjective 24 Hr Interval Summary Free Text/Dictation Patient still agitated at night last night. Started on TPN yesterday evening. Exam/Review of Systems Vital Signs Vitals Vital Signs Date Time Temp Pulse Resp B/P Pulse Ox O2 Delivery O2 Flow Rate FiO2 12/26/16 08:00 97.6 63 18 131/70 99 12/25/16 20:00 Nasal Cannula 2.0 Intake and Output 12/25/16 12/25/16 12/26/16 14:59 22:59 06:59 Intake Total 950 ml 440 ml Output Total 2700 ml 1600 ml Balance -1750 ml -1160 ml Exam nad, presently sleeping no mrg lungs clear abd soft no lower extremity edema bilateral No focal deficits Results Result Diagram: 12/26/16 0525 12/26/16 0525 Results 24 hrs Laboratory Tests Test 12/26/16 05:25 12/26/16 08:46 12/26/16 12:11 White Blood Count 6.4 Red Blood Count 4.05 L Hemoglobin 12.8 L Hematocrit 37.9 L Mean Corpuscular Volume 93.6 Mean Corpuscular Hemoglobin 31.6 Mean Corpuscular Hemoglobin Concent 33.8 Red Cell Distribution Width 12.9 Platelet Count 248 Mean Platelet Volume 10.7 H Neutrophils % 48.4 Lymphocytes % 38.6 Monocytes % 8.9 Eosinophils % 3.1 Basophils % 0.8 Nucleated Red Blood Cells % 0.0 Neutrophils # (Manual) 3 Lymphocytes # 2.5 Monocytes # 0.6 Eosinophils # 0.2 Basophils # 0.1 Nucleated Red Blood Cells # 0.0 Sodium Level 136 Potassium Level 3.8 Chloride Level 104 Carbon Dioxide Level 26 Anion Gap 10 Blood Urea Nitrogen 8 Creatinine 0.60 L Glucose Level 93 Calcium Level 8.7 Phosphorus Level 3.5 Magnesium Level 1.8 Bedside Glucose 77 155 Medications Medications Current Medications Ondansetron HCl (Zofran Inj) 4 mg Q6H PRN IV NAUSEA AND/OR VOMITING; Start 12/14 at 02:30 Acetaminophen (Tylenol Supp) 650 mg Q6H PRN [place] PAIN LEVEL 1-3 OR FEVER; Start 12/14/16 at 02:30 Albuterol (Ventolin Hfa) 2 puff Q4H INH Last administered on 12/26/16 12:12; Admin Dose 2 PUFF; Start 12/14/16 at 03:00 Atorvastatin Calcium (Lipitor) 10 mg QHS PO Last administered on 12/25/16 20: 37; Admin Dose 10 MG; Start 12/14/16 at 21:00 Quetiapine Fumarate (Seroquel) 200 mg DAILY PO Last administered on 12/26/16 08:50; Admin Dose 200 MG; Start 12/14/16 at 09:00 Tiotropium [place] (Spiriva) 18 inh DAILY INH Last administered on 12/26/16 08 :50; Admin Dose 18 INH; Start 12/14/16 at 09:00 Tramadol HCl (Ultram) 50 mg Q6H PRN PO PAIN Last administered on 12/22/16 11: 35; Admin Dose 50 MG; Start 12/14/16 at 03:00 Apixaban (Eliquis) 5 mg BID PO Last administered on 12/26/16 08:50; Admin Dose 5 MG; Start 12/14/16 at 09:00 IV Flush (NS 10 ml) 10 ml PRN PRN IV FLUSH LINE; Start 12/17/16 at 18:00 Acetaminophen (Tylenol Tab) 650 mg Q6H PRN PO PAIN AND OR ELEVATED TEMP Last administered on 12/19/16 08:37; Admin Dose 650 MG; Start 12/18/16 at 14:30 Morphine Sulfate (morphine) 2 mg Q4H PRN IV PAIN Last administered on 05:32; Admin Dose 2 MG; Start 12/19/16 at 20:00 Mupirocin (Bactroban) 1 applic BID TOP Last administered on 12/26/16 08:50; Admin Dose 1 APPLIC; Start 12/21/16 at 21:00 Lorazepam 1 mg 1 mg Q4H PRN IV AGITATION/ANXIETY Last administered on 02:35; Admin Dose 1 MG; Start 12/22/16 at 15:00 Total Parenteral Nutrition (Tpn) 1,000 ml @ 40 mls/hr Q24H IV Last administered on 12/25/16 18:08; Admin Dose 40 MLS/HR; Start 12/25/16 at 16:00 Diagnostic Test (Pha) (Accu-Chek) 1 ea Q6 XX Last administered on 12/26/16 12: 11; Admin Dose 1 EA; Start 12/26/16 at 12:00; Stop 12/27/16 at 00:00 Diagnostic Test (Pha) (Accu-Chek) 1 ea Q12H XX ; Start 12/27/16 at 12:00 Quetiapine Fumarate (Seroquel) 200 mg HS PO ; Start 12/26/16 at 21:00; Status EVELIA LOPEZ Dec 26, 2016 13:07
[2016-12-26 14:00] VITALS: BP 90/53; RESP 18
[2016-12-26] MEDS ORDERED: ALTEPLASE (CATHFLO) 2 MG INJ CATHETER ONE (16:00)
[2016-12-26] MEDS: TPN 1,000 ML IV SCH (17:25)
[2016-12-26 19:54] VITALS: BP 105/61; RESP 19
[2016-12-26] MEDS: ATORVASTATIN 10 MG TAB PO SCH (22:21)
[2016-12-27] MEDS: LORAZEPAM 2 MG INJ IV PRN (00:29)
[2016-12-27] MEDS: morphine 2 MG INJ IV PRN ×5 (02:24→20:23)
[2016-12-27] MEDS: ALBUTEROL 18 GM INHALER INH SCH ×6 (02:27→20:32)
[2016-12-27] MEDS: LEVOTHYROXINE 50 MCG TAB PO SCH (06:15)
[2016-12-27 08:00] VITALS: BP 107/64; RESP 18
[2016-12-27] MEDS: TIOTROPIUM 18 MCG CAPSULE INHA DEV INH SCH (08:39)
[2016-12-27] MEDS: MUPIROCIN 2% 22 GM OINT TOP SCH ×2 (08:39→20:32)
[2016-12-27] MEDS: QUETIAPINE 100 MG TAB PO SCH ×2 (08:39→20:20)
[2016-12-27] MEDS: APIXABAN 5 MG TABLET PO SCH ×2 (08:39→20:20)
[2016-12-27] MEDS: ACCU-CHEK XX SCH (12:57)
[2016-12-27 14:00] VITALS: BP 110/75; RESP 20
[2016-12-27] MEDS: TPN 1,000 ML IV SCH (15:55)
--- NOTE | 2016-12-27 18:18 | PN ---
Date/Time of Note Date/Time of Note DATE: 12/27/16 TIME: 18:18 Assessment/Plan VTE Prophylaxis VTE Prophylaxis Intervention: SCD's Lines/Catheters IV Catheter Type (from Nrsg): PICC Line Central line still needed: Yes Urinary Cath still in place: No Assessment/Plan Assessment/Plan 61 yo M with dementia admitted for sepsis from aspiration pna. Pt with profound dysphagia from his dementia precluding PO tolerance. attempting to reach his conservator to clarify goals of care #PNA: resolved #dysphagia: likely 2/2 underlying dementia. PO meds on hold. ST following. Started on TPN low rate #DVT prophylaxis: Again, patient states he believes he may have been diagnosed with blood clot a few months ago, but is not aware what part of his body, and believes he started Eliquis at that time. -cautiously administer Eliquis p.o with applesauce/pudding only as tolerated. dispo planning; attempted multiple times to reach conservator today to talk about dysphagia/PEG etc. Left voicemail. Will call again tomorrow Subjective 24 Hr Interval Summary Free Text/Dictation pt again adamant that he doesn't want a PEG Exam/Review of Systems Vital Signs Vitals Vital Signs Date Time Temp Pulse Resp B/P Pulse Ox O2 Delivery O2 Flow Rate FiO2 12/27/16 16:52 2.0 12/27/16 14:00 98.6 80 20 110/75 96 12/27/16 12:36 Nasal Cannula Intake and Output 12/26/16 12/26/16 12/27/16 15:00 23:00 07:00 Intake Total 560 ml 480 ml Output Total 900 ml 900 ml Balance -340 ml -420 ml Exam nad, sitting up in bed lungs clear abd soft no rashes shouts sometimes Results Result Diagram: 12/26/16 0525 12/26/16 0525 Results 24 hrs Laboratory Tests Test 12/27/16 06:18 12/27/16 06:23 12/27/16 12:54 Bedside Glucose 97 113 Phosphorus Level 4.0 Medications Medications Current Medications Ondansetron HCl (Zofran Inj) 4 mg Q6H PRN IV NAUSEA AND/OR VOMITING; Start 12/14 at 02:30 Acetaminophen (Tylenol Supp) 650 mg Q6H PRN [place] PAIN LEVEL 1-3 OR FEVER; Start 12/14/16 at 02:30 Albuterol (Ventolin Hfa) 2 puff Q4H INH Last administered on 12/27/16 15:55; Admin Dose 2 PUFF; Start 12/14/16 at 03:00 Atorvastatin Calcium (Lipitor) 10 mg QHS PO Last administered on 12/26/16 22: 21; Admin Dose 10 MG; Start 12/14/16 at 21:00 Quetiapine Fumarate (Seroquel) 200 mg DAILY PO Last administered on 12/27/16 08:39; Admin Dose 200 MG; Start 12/14/16 at 09:00 Tiotropium [place] (Spiriva) 18 inh DAILY INH Last administered on 12/27/16 08 :39; Admin Dose 18 INH; Start 12/14/16 at 09:00 Tramadol HCl (Ultram) 50 mg Q6H PRN PO PAIN Last administered on 12/22/16 11: 35; Admin Dose 50 MG; Start 12/14/16 at 03:00 Apixaban (Eliquis) 5 mg BID PO Last administered on 12/27/16 08:39; Admin Dose 5 MG; Start 12/14/16 at 09:00 IV Flush (NS 10 ml) 10 ml PRN PRN IV FLUSH LINE; Start 12/17/16 at 18:00 Acetaminophen (Tylenol Tab) 650 mg Q6H PRN PO PAIN AND OR ELEVATED TEMP Last administered on 12/19/16 08:37; Admin Dose 650 MG; Start 12/18/16 at 14:30 Morphine Sulfate (morphine) 2 mg Q4H PRN IV PAIN Last administered on 16:08; Admin Dose 2 MG; Start 12/19/16 at 20:00 Mupirocin (Bactroban) 1 applic BID TOP Last administered on 12/27/16 08:39; Admin Dose 1 APPLIC; Start 12/21/16 at 21:00 Lorazepam 1 mg 1 mg Q4H PRN IV AGITATION/ANXIETY Last administered on 00:29; Admin Dose 1 MG; Start 12/22/16 at 15:00 Total Parenteral Nutrition (Tpn) 1,000 ml @ 40 mls/hr Q24H IV Last administered on 12/27/16 15:55; Admin Dose 40 MLS/HR; Start 12/25/16 at 16:00 Diagnostic Test (Pha) (Accu-Chek) 1 ea Q12H XX Last administered on 12/27/16 12:57; Admin Dose 1 EA; Start 12/27/16 at 12:00 Quetiapine Fumarate (Seroquel) 200 mg HS PO Last administered on 12/26/16 22: 20; Admin Dose 200 MG; Start 12/26/16 at 21:00 ANIKA BROWNLEE MD Dec 27, 2016 18:18
[2016-12-27 19:30] VITALS: BP 121/71; RESP 19
[2016-12-27] MEDS: ATORVASTATIN 10 MG TAB PO SCH (20:20)
[2016-12-28] MEDS: traMADol 50 MG TAB PO PRN (00:30)
[2016-12-28] MEDS: ALBUTEROL 18 GM INHALER INH SCH ×6 (03:00→23:00)
[2016-12-28] MEDS: LEVOTHYROXINE 50 MCG TAB PO SCH (06:10)
[2016-12-28] MEDS: morphine 2 MG INJ IV PRN ×3 (06:11→23:56)
[2016-12-28 07:32] VITALS: BP 116/58; RESP 20
[2016-12-28] MEDS: APIXABAN 5 MG TABLET PO SCH ×2 (10:33→21:24)
[2016-12-28] MEDS: QUETIAPINE 100 MG TAB PO SCH ×2 (10:33→21:24)
[2016-12-28] MEDS: MUPIROCIN 2% 22 GM OINT TOP SCH ×2 (10:33→21:25)
[2016-12-28] MEDS: TIOTROPIUM 18 MCG CAPSULE INHA DEV INH SCH (10:33)
[2016-12-28] MEDS: ACCU-CHEK XX SCH ×3 (12:00→23:59)
[2016-12-28 14:12] VITALS: BP 108/66; RESP 18
--- NOTE | 2016-12-28 16:07 | PN ---
Date/Time of Note Date/Time of Note DATE: 12/28/16 TIME: 16:05 Assessment/Plan VTE Prophylaxis VTE Prophylaxis Intervention: SCD's Lines/Catheters IV Catheter Type (from Nrs): PICC Line Central line still needed: Yes Urinary Cath still in place: No Assessment/Plan Assessment/Plan 61 yo M with dementia admitted for sepsis from aspiration pna. Pt with profound dysphagia from his dementia precluding PO tolerance. attempting to reach his conservator to clarify goals of care #PNA: resolved #dysphagia: likely 2/2 underlying dementia. PO meds on hold. ST following. Started on TPN low rate #DVT prophylaxis: Again, patient states he believes he may have been diagnosed with blood clot a few months ago, but is not aware what part of his body, and believes he started Eliquis at that time. -cautiously administer Eliquis p.o with applesauce/pudding only as tolerated. dispo planning; reached pt's guarding this AM. She stated she was agreeable to comfort feeds but wanted to talk to pt's brother and sister first. Per her request I faxed her progress notes prior to 9am and we agreed I'd call her back at 1pm. I called back at 1pm and hourly since with all calls going to voicemail. I left a message requesting a call back. Will try to reach her again tomorrow morning Subjective 24 Hr Interval Summary Free Text/Dictation yelling that he wants pudding again adamant that he doesn't want a feeding tube Exam/Review of Systems Vital Signs Vitals Vital Signs Date Time Temp Pulse Resp B/P Pulse Ox O2 Delivery O2 Flow Rate FiO2 12/28/16 14:12 98.2 78 18 108/66 94 12/28/16 08:08 2.0 12/28/16 08:00 Nasal Cannula Intake and Output 12/27/16 12/27/16 12/28/16 15:00 23:00 07:00 Intake Total 1040 ml 480 ml Balance 1040 ml 480 ml Exam nad no mrg lungs clear abd soft no rashes Results Result Diagram: 12/26/16 0525 12/26/16 0525 Results 24 hrs Laboratory Tests Test 12/28/16 00:21 12/28/16 09:15 12/28/16 12:32 Bedside Glucose 88 88 Phosphorus Level 4.2 Medications Medications Current Medications Ondansetron HCl (Zofran Inj) 4 mg Q6H PRN IV NAUSEA AND/OR VOMITING; Start 12/14 at 02:30 Acetaminophen (Tylenol Supp) 650 mg Q6H PRN [place] PAIN LEVEL 1-3 OR FEVER; Start 12/14/16 at 02:30 Albuterol (Ventolin Hfa) 2 puff Q4H INH Last administered on 12/28/16 10:33; Admin Dose 2 PUFF; Start 12/14/16 at 03:00 Atorvastatin Calcium (Lipitor) 10 mg QHS PO Last administered on 12/27/16 20: 20; Admin Dose 10 MG; Start 12/14/16 at 21:00 Quetiapine Fumarate (Seroquel) 200 mg DAILY PO Last administered on 12/28/16 10:33; Admin Dose 200 MG; Start 12/14/16 at 09:00 Tiotropium [place] (Spiriva) 18 inh DAILY INH Last administered on 12/28/16 10 :33; Admin Dose 1 INH; Start 12/14/16 at 09:00 Tramadol HCl (Ultram) 50 mg Q6H PRN PO PAIN Last administered on 12/28/16 00: 30; Admin Dose 50 MG; Start 12/14/16 at 03:00 Apixaban (Eliquis) 5 mg BID PO Last administered on 12/28/16 10:33; Admin Dose 5 MG; Start 12/14/16 at 09:00 IV Flush (NS 10 ml) 10 ml PRN PRN IV FLUSH LINE; Start 12/17/16 at 18:00 Acetaminophen (Tylenol Tab) 650 mg Q6H PRN PO PAIN AND OR ELEVATED TEMP Last administered on 12/19/16 08:37; Admin Dose 650 MG; Start 12/18/16 at 14:30 Morphine Sulfate (morphine) 2 mg Q4H PRN IV PAIN Last administered on 10:34; Admin Dose 2 MG; Start 12/19/16 at 20:00 Mupirocin (Bactroban) 1 applic BID TOP Last administered on 12/28/16 10:33; Admin Dose 1 APPLIC; Start 12/21/16 at 21:00 Lorazepam 1 mg 1 mg Q4H PRN IV AGITATION/ANXIETY Last administered on 00:29; Admin Dose 1 MG; Start 12/22/16 at 15:00 Total Parenteral Nutrition (Tpn) 1,000 ml @ 40 mls/hr Q24H IV Last administered on 12/27/16 15:55; Admin Dose 40 MLS/HR; Start 12/25/16 at 16:00 Diagnostic Test (Pha) (Accu-Chek) 1 ea Q12H XX Last administered on 12/27/16 12:57; Admin Dose 1 EA; Start 12/27/16 at 12:00 Quetiapine Fumarate (Seroquel) 200 mg HS PO Last administered on 12/27/16 20: 20; Admin Dose 200 MG; Start 12/26/16 at 21:00 ANIKA BROWNLEE MD Dec 28, 2016 16:07
[2016-12-28] MEDS: TPN 1,000 ML IV SCH (16:16)
[2016-12-28 20:00] VITALS: BP 110/64; RESP 18
[2016-12-28] MEDS: ATORVASTATIN 10 MG TAB PO SCH (21:24)
[2016-12-29 02:04] VITALS: BP 115/56; RESP 18
[2016-12-29] MEDS: ACETAMINOPHEN 325 MG TAB PO PRN (02:37)
[2016-12-29] MEDS: ALBUTEROL 18 GM INHALER INH SCH ×6 (02:40→22:24)
[2016-12-29] MEDS: TPN 1,000 ML IV SCH ×2 (03:20→09:18)
[2016-12-29] MEDS: morphine 2 MG INJ IV PRN ×4 (04:27→22:25)
[2016-12-29] MEDS: LEVOTHYROXINE 50 MCG TAB PO SCH (06:23)
[2016-12-29 06:31] LABS: CREATININE 0.6 mg/dl (0.61-1.24); POTASSIUM 4.1 mmol/L (3.5-5.1)
[2016-12-29 07:45] VITALS: BP 111/58; RESP 18
[2016-12-29] MEDS: QUETIAPINE 100 MG TAB PO SCH ×2 (09:12→21:36)
[2016-12-29] MEDS: APIXABAN 5 MG TABLET PO SCH ×2 (09:12→21:36)
[2016-12-29] MEDS: MUPIROCIN 2% 22 GM OINT TOP SCH ×2 (09:15→21:54)
[2016-12-29] MEDS: ACCU-CHEK XX SCH (12:00)
[2016-12-29 14:02] VITALS: BP 89/59; RESP 20
--- NOTE | 2016-12-29 15:10 | PN ---
Date/Time of Note Date/Time of Note DATE: 12/29/16 TIME: 15:10 Assessment/Plan VTE Prophylaxis VTE Prophylaxis Intervention: SCD's Lines/Catheters IV Catheter Type (from Nrsg): PICC Line Central line still needed: No Urinary Cath still in place: No Assessment/Plan Assessment/Plan Assessment/Plan 61 yo M with dementia admitted for sepsis from aspiration pna. Pt with profound dysphagia from his dementia precluding PO tolerance. After discussion with conservator and conservator discussion with family, all parties agreeable to comfort feeds and no PEG tube #PNA: resolved #dysphagia: likely 2/2 underlying dementia. comfort feeds #DVT prophylaxis? check LEs for DVT Dispo: boarding care refused to take patient back, CM looking for SNF Subjective 24 Hr Interval Summary Free Text/Dictation excited to try some pudding Exam/Review of Systems Vital Signs Vitals Vital Signs Date Time Temp Pulse Resp B/P Pulse Ox O2 Delivery O2 Flow Rate FiO2 12/29/16 14:02 97.7 106 20 89/59 96 12/29/16 09:00 Nasal Cannula 2.0 Intake and Output 12/28/16 12/28/16 12/29/16 15:00 23:00 07:00 Intake Total 730 ml 600 ml Balance 730 ml 600 ml Exam nad no mrg lungs clear abd soft no rashes Results Result Diagram: 12/26/16 0525 12/29/16 0508 Results 24 hrs Laboratory Tests Test 12/28/16 23:58 12/29/16 05:08 12/29/16 12:19 Bedside Glucose 101 105 Sodium Level 138 Potassium Level 4.1 Chloride Level 103 Carbon Dioxide Level 26 Anion Gap 13 Blood Urea Nitrogen 22 H Creatinine 0.60 L Glucose Level 84 Calcium Level 9.0 Phosphorus Level 3.9 Medications Medications Current Medications Ondansetron HCl (Zofran Inj) 4 mg Q6H PRN IV NAUSEA AND/OR VOMITING; Start 12/14 at 02:30 Acetaminophen (Tylenol Supp) 650 mg Q6H PRN [place] PAIN LEVEL 1-3 OR FEVER; Start 12/14/16 at 02:30 Albuterol (Ventolin Hfa) 2 puff Q4H INH Last administered on 12/28/16t 10:33; Admin Dose 2 PUFF; Start 12/14/16 at 03:00 Atorvastatin Cal[place] (Lipitor) 10 mg QHS PO Last administered on 12/28/16 21: 24; Admin Dose 10 MG; Start 12/14/16 at 21:00 Quetiapine Fumarate (Seroquel) 200 mg DAILY PO Last administered on 12/29/16 09:12; Admin Dose 200 MG; Start 12/14/16 at 09:00 Tiotropium [place] (Spiriva) 18 inh DAILY INH Last administered on 12/28/16 10 :33; Admin Dose 1 INH; Start 12/14/16 at 09:00 Tramadol HCl (Ultram) 50 mg Q6H PRN PO PAIN Last administered on 12/28/16 00: 30; Admin Dose 50 MG; Start 12/14/16 at 03:00 Apixaban (Eliquis) 5 mg BID PO Last administered on 12/29/16 09:12; Admin Dose 5 MG; Start 12/14/16 at 09:00 IV Flush (NS 10 ml) 10 ml PRN PRN IV FLUSH LINE; Start 12/17/16 at 18:00 Acetaminophen (Tylenol Tab) 650 mg Q6H PRN PO PAIN AND OR ELEVATED TEMP Last administered on 12/29/16 02:37; Admin Dose 650 MG; Start 12/18/16 at 14:30 Morphine Sulfate (morphine) 2 mg Q4H PRN IV PAIN Last administered on 09:12; Admin Dose 2 MG; Start 12/19/16 at 20:00 Mupirocin (Bactroban) 1 applic BID TOP Last administered on 12/29/16 09:15; Admin Dose 1 APPLIC; Start 12/21/16 at 21:00 Lorazepam (Ativan) 1 mg Q4H PRN IV AGITATION/ANXIETY Last administered on 00:29; Admin Dose 1 MG; Start 12/22/16 at 15:00 Diagnostic Test (Pha) (Accu-Chek) 1 ea Q12H XX Last administered on 12/29/16 12:00; Admin Dose 1 EA; Start 12/27/16 at 12:00 Quetiapine Fumarate (Seroquel) 200 mg HS PO Last administered on 12/28/16 21: 24; Admin Dose 200 MG; Start 12/26/16 at 21:00 ANIKA BROWNLEE MD Dec 29, 2016 15:10
--- NOTE | 2016-12-29 16:10 | RADRPT ---
PROCEDURE: US Lower extremity Venous. CLINICAL INDICATION: Left leg edema TECHNIQUE: Multiple sonographic images of the left lower extremity deep venous system was obtained utilizing grayscale, color-flow, compressive sonography and doppler imaging with augmentation. The images were reviewed on a PACS workstation. COMPARISON: None. FINDINGS: There is normal compressibility and flow within the left common femoral, femoral, posterior tibial, peroneal and popliteal veins. RPTAT: AA IMPRESSION: No sonographic evidence for deep venous thrombosis. .Hardeep Boyd MD, MD Date Time Electronically viewed and signed by .Hardeep Boyd MD, on 12/29/2016 16:10 .S/
[2016-12-29 16:19] VITALS: BP 102/68
[2016-12-29] MEDS: TIOTROPIUM 18 MCG CAPSULE INHA DEV INH SCH (16:50)
[2016-12-29 19:59] VITALS: BP 92/53; RESP 19
[2016-12-29 20:30] VITALS: BP 98/56; PULSE 108
[2016-12-29] MEDS: ATORVASTATIN 10 MG TAB PO SCH (21:36)
[2016-12-30 02:19] VITALS: BP 101/52; RESP 18
[2016-12-30] MEDS: morphine 2 MG INJ IV PRN ×2 (02:25→06:46)
[2016-12-30] MEDS: ALBUTEROL 18 GM INHALER INH SCH ×6 (03:00→22:28)
[2016-12-30] MEDS: LEVOTHYROXINE 50 MCG TAB PO SCH (06:32)
[2016-12-30] MEDS: QUETIAPINE 100 MG TAB PO SCH ×2 (08:05→22:26)
[2016-12-30] MEDS: traMADol 50 MG TAB PO PRN ×2 (08:05→22:26)
[2016-12-30] MEDS: TIOTROPIUM 18 MCG CAPSULE INHA DEV INH SCH (08:05)
[2016-12-30] MEDS: APIXABAN 5 MG TABLET PO SCH (08:05)
[2016-12-30 08:56] VITALS: BP 135/58; RESP 20
[2016-12-30] MEDS: MUPIROCIN 2% 22 GM OINT TOP SCH ×2 (11:35→22:27)
[2016-12-30] MEDS: ACCU-CHEK XX SCH ×2 (11:36)
--- NOTE | 2016-12-30 12:56 | PN ---
Date/Time of Note Date/Time of Note DATE: 12/30/16 TIME: 12:53 Assessment/Plan VTE Prophylaxis VTE Prophylaxis Intervention: SCD's Lines/Catheters IV Catheter Type (from Nrsg): PICC Line Central line still needed: No Urinary Cath still in place: No Assessment/Plan Assessment/Plan 61 yo M with dementia admitted for sepsis from aspiration pna. Pt with profound dysphagia from his dementia precluding PO tolerance. After discussion with conservator and conservator discussion with family, all parties agreeable to comfort feeds and no PEG tube #PNA: resolved #dysphagia: likely 2/2 underlying dementia. comfort feeds #DVT prophylax: LE dopplers negative only needs prophx Dispo: boarding care refused to take patient back, CM looking for SNF Subjective 24 Hr Interval Summary Free Text/Dictation Pt wondering if he'll be getting lunch today (pt seen at 920am) Exam/Review of Systems Vital Signs Vitals Vital Signs Date Time Temp Pulse Resp B/P Pulse Ox O2 Delivery O2 Flow Rate FiO2 12/30/16 08:56 97.7 73 20 135/58 98 12/29/16 20:30 Nasal Cannula 2.0 Intake and Output 12/29/16 12/29/16 12/30/16 15:00 23:00 07:00 Intake Total 800 ml 240 ml Output Total 600 ml Balance 200 ml 240 ml Exam nad no mrg lungs clear abd soft no rashes Results Result Diagram: 12/26/16 0525 12/29/16 0508 Results 24 hrs Laboratory Tests Test 12/30/16 00:44 Bedside Glucose 113 Medications Medications Current Medications Ondansetron HCl (Zofran Inj) 4 mg Q6H PRN IV NAUSEA AND/OR VOMITING; Start 12/14 at 02:30 Acetaminophen (Tylenol Supp) 650 mg Q6H PRN ND PAIN LEVEL 1-3 OR FEVER; Start 12/14/16 at 02:30 Albuterol (Ventolin Hfa) 2 puff Q4H INH Last administered on 12/30/16 11:35; Admin Dose 2 PUFF; Start 12/14/16 at 03:00 Atorvastatin Calcium (Lipitor) 10 mg QHS PO Last administered on 12/29/16 21: 36; Admin Dose 10 MG; Start 12/14/16 at 21:00 Quetiapine Fumarate (Seroquel) 200 mg DAILY PO Last administered on 12/30/16 08:05; Admin Dose 200 MG; Start 12/14/16 at 09:00 Tiotropium [place] (Spiriva) 18 inh DAILY INH Last administered on 12/30/16 08 :05; Admin Dose 18 INH; Start 12/14/16 at 09:00 Tramadol HCl (Ultram) 50 mg Q6H PRN PO PAIN Last administered on 12/30/16 08: 05; Admin Dose 50 MG; Start 12/14/16 at 03:00 Apixaban (Eliquis) 5 mg BID PO Last administered on 12/30/16 08:05; Admin Dose 5 MG; Start 12/14/16 at 09:00 IV Flush (NS 10 ml) 10 ml PRN PRN IV FLUSH LINE; Start 12/17/16 at 18:00 Acetaminophen (Tylenol Tab) 650 mg Q6H PRN PO PAIN AND OR ELEVATED TEMP Last administered on 12/29/16 02:37; Admin Dose 650 MG; Start 12/18/16 at 14:30 Morphine Sulfate (morphine) 2 mg Q4H PRN IV PAIN Last administered on 06:46; Admin Dose 2 MG; Start 12/19/16 at 20:00 Mupirocin (Bactroban) 1 applic BID TOP Last administered on 12/30/16 11:35; Admin Dose 1 APPLIC; Start 12/21/16 at 21:00 Lorazepam (Ativan) 1 mg Q4H PRN IV AGITATION/ANXIETY Last administered on 00:29; Admin Dose 1 MG; Start 12/22/16 at 15:00 Diagnostic Test (Pha) (Accu-Chek) 1 ea Q12H XX Last administered on 12/29/16 12:00; Admin Dose 1 EA; Start 12/27/16 at 12:00 Quetiapine Fumarate (Seroquel) 200 mg HS PO Last administered on 12/29/16 21: 36; Admin Dose 200 MG; Start 12/26/16 at 21:00 ANIKA BROWNLEE MD Dec 30, 2016 12:56
[2016-12-30] MEDS ORDERED: HYDROCODONE/APAP (5/325) TAB PO PRN (14:30)
[2016-12-30 15:44] VITALS: BP 100/59; RESP 18
[2016-12-30 20:00] VITALS: BP 106/68; RESP 20
[2016-12-30] MEDS: ATORVASTATIN 10 MG TAB PO SCH (22:26)
[2016-12-31 02:23] VITALS: BP 109/68; RESP 20
[2016-12-31] MEDS: ALBUTEROL 18 GM INHALER INH SCH ×4 (03:35→16:41)
[2016-12-31] MEDS: LEVOTHYROXINE 50 MCG TAB PO SCH (05:57)
[2016-12-31] MEDS: traMADol 50 MG TAB PO PRN ×2 (05:57→12:35)
[2016-12-31 08:00] VITALS: BP 134/62; RESP 16
[2016-12-31 08:11] VITALS: BP 128/67; RESP 16
[2016-12-31] MEDS: QUETIAPINE 100 MG TAB PO SCH (08:47)
[2016-12-31] MEDS: TIOTROPIUM 18 MCG CAPSULE INHA DEV INH SCH (08:47)
[2016-12-31] MEDS: MUPIROCIN 2% 22 GM OINT TOP SCH (08:52)
[2016-12-31] MEDS ORDERED: ENOXAPARIN 40 MG/0.4 ML SYG SC SCH (09:00)
[2016-12-31] MEDS: ACCU-CHEK XX SCH ×2 (11:18)
[2016-12-31 14:20] VITALS: BP 109/58; RESP 18
[2016-12-31 15:30] VITALS: PULSE 88
--- NOTE | 2016-12-31 17:29 | DS ---
Date/Time of Note Date/Time of Note DATE: 12/31/16 TIME: 17:26 Discharge Summary Admission/Discharge Info Admit Date/Time Dec 13, 2016 at 23:22 Discharge Date/Time Discharge Diagnosis aspiration pneumonia, dementia Patient Condition: Stable Procedures CT AP 8.7 IMPRESSION: 1. Patchy consolidation right upper lobe of the lung is concerning for pneumonia. Right greater than left dependent lung consolidation may be due to infection or atelectasis. 2. Stool ball in the rectum with rectal wall thickening is concerning for stercoral proctitis. Recommended disimpaction. 3. Colonic diverticulosis without diverticulitis. 4. Cholelithiasis without evidence of acute cholecystitis. 5. Mild ascending aortic aneurysm measuring 4.3 cm. 6. Nonspecific bubbles of gas lateral to the trachea and superior to right mainstem bronchus are nonspecific. Recommend correlation with history of prior intervention. Recommend attention on follow-up imaging. 8.11: PICC Line inserted 8.24 PICC line dc'ed 8.23 LE dopplers: no DVT bl Hx of Present Illness Chief complaint: Fever 45 days This is a 61-year-old male who is presenting with fever for 4-5 days. History was gathered from the ED physician documentation as well as the patient, however the patient is a poor historian. he lives in a nursing facility. He has a history of dementia, agitation, COPD. He is also on Eliquis, but it is unclear at this time as to why. According to his nursing facility he is not typically fully oriented. He is presently alert and oriented 2 to person and time. He is not oriented to place or situation. He does state that he has some pain and points to his lower abdomen. According to the nursing facility and paramedics, the patient was febrile above 102 Fahrenheit. He was tachycardic and transiently hypotensive as well. The patient's history is limited secondary to dementia and he is unable to provide much detail of his presentation Allergies: NKDA Medications: See JUL Hospital Course 61 yo M with dementia admitted for sepsis from aspiration pna, completed 1 week of abx. Pt with profound dysphagia from his dementia precluding PO tolerance. After discussion with conservator and conservator discussion with family, all parties agreeable to comfort feeds and no PEG tube. Pt discharged to SNF for further prison Meds Reported Medications Valproic Acid* (Valproic Acid* Liq) 250 Mg/5 Ml Syrup, 25 ML PO BID, ML 12/13/16 Albuterol Sulfate* (Ventolin HFA*) 18 Gm Hfa.aer.ad, 2 PUFF INHALATION Q4H, #1 INHALER 12/13/16 Docusate Sodium* (Colace* Liq) 50 Mg/5 Ml Liquid, 25 MG PO BID, EA 12/13/16 Famotidine* (Famotidine*) 40 Mg Tablet, 40 MG PO HS, #30 TAB 12/13/16 Tramadol Hcl* (Ultram*) 50 Mg Tablet, 50 MG PO Q6H Y for PAIN, TAB 12/13/16 Atorvastatin Calcium (Atorvastatin Calcium) 10 Mg Tablet, 10 MG PO QHS, #30 TAB 12/13/16 Lorazepam* (Lorazepam*) 1 Mg Tablet, 1 MG PO BID Y for ANXIETY, #30 TAB 12/13/16 Quetiapine Fumarate* (Quetiapine Fumarate*) 200 Mg Tablet, 200 MG PO DAILY, TAB 12/13/16 Quetiapine Fumarate* (Quetiapine Fumarate*) 100 Mg Tablet, 100 MG PO HS, TAB 12/13/16 Quetiapine Fumarate* (Quetiapine Fumarate*) 25 Mg Tablet, 25 MG PO TID Y for PRN , TAB 12/13/16 Levothyroxine Sodium* (Levothyroxine Sodium*) 50 Mcg Tablet, 50 MCG PO BEFORE BREAKFAST, #30 TAB 12/13/16 Apixaban* (Eliquis*) 5 Mg Tablet, 5 MG PO BID, TAB 12/13/16 Tiotropium [place]* (Spiriva*) 18 Mcg Cap.w.dev, 1 CAP INHALATION DAILY, #30 CAP 12/13/16 Primary Care Provider Care Physician No Primary Time spent on discharge: > 30 minutes Pending Labs Laboratory Tests Test 12/31/16 11:17 Bedside Glucose 143mg/dL (70-220) ANIKA BROWNLEE MD Dec 31, 2016 17:29
== END 2016-12-31 18:20 | DRG 871 ==
LOC: E/R 18:04 → TEL 23:22 → PP2 12-15 18:57
PROVIDERS: ADMIT Family Medicine; ATTEND Family Medicine
PROC: BD1BYZZ Fluoroscopy of Mouth/Oropharynx using Other Contrast (ICD-10-PCS; 2016-12-16)
PROC: 02H633Z Insertion of Infusion Device into Right Atrium, Percutaneous Approach (ICD-10-PCS; principal; 2016-12-17)
PROC: B244ZZZ Ultrasonography of Right Heart (ICD-10-PCS; 2016-12-17)
DX: A41.9 Sepsis, unspecified organism (principal); J69.0 Pneumonitis due to inhalation of food and vomit; F03.90 Unspecified dementia, unspecified severity, without behavioral disturbance, psychotic disturbance, mood disturbance, and anxiety; J44.9 Chronic obstructive pulmonary disease, unspecified; E03.9 Hypothyroidism, unspecified; R13.10 Dysphagia, unspecified; Z79.01 Long term (current) use of anticoagulants; Z87.891 Personal history of nicotine dependence; K62.89 Other specified diseases of anus and rectum; R79.89 Other specified abnormal findings of blood chemistry
CPT/HCPCS: 36569; 71010; 71250; 74176; 74230; 76937; 80048; 80053; 80061; 80076; 80164; 80202; 81001; 81003; 82550; 82553; 82565; 82962; 83036; 83605; 83735; 84100; 84134; 84443; 84478; 84484; 84520; 85025; 85610; 85730; 86403; 87040; 87081; 87086; 92526; 92610; 92611; 93005; 93306; 93971; 97162; C9113; J0456; J0692; J0696; J1200; J1630; J1644; J1650; J2060; J2270; J2997; J3010; J3370; J3475; J3480; J7030; J7042; J7050